=== PATIENT | male | born 1965 | race Caucasian/White ===

== ENCOUNTER 2018-03-08 21:16 | Emergency (ER) | payer SELFPAY | END 2018-03-08 23:00 | disposition left against medical advice (07) | LOC: ERS 21:16 | DX: Z53.21 Procedure and treatment not carried out due to patient leaving prior to being seen by health care provider (principal) ==

== ENCOUNTER 2019-02-13 19:09 | Inpatient (IN) | payer SELFPAY ==
[2019-02-13] MEDS ORDERED: Morphine 4 MG/ML VIAL ONE (19:42)
[2019-02-13 19:52] LABS: #Basophils 0.1 thou/uL (0.0-0.2); #Eosinphils 0.2 thou/uL (0.0-0.7); #Lymphocytes 2.7 thou/uL (1.20-3.40); #Monocytes 0.8 thou/uL (0.11-0.59); #Neutrophils 5.7 thou/uL (1.40-6.50); %Basophils 0.8 % (0.0-1.0); %Eosinophils 1.8 % (0.0-10.0); %Lymphocytes 28.3 % (21.0-51.0); %Monocytes 8.4 % (0.0-10.0); %Neutrophils 60.6 % (42.0-75.0); Hemoglobin 14.9 g/dL (14.0-18.0); Mean Corpuscular HGB CONC 32.9 g/dL (32.0-36.0); Mean Corpuscular Hemoglobin 28.6 pg (27.0-31.0); Mean Platelet Volume 7.5 fL (7.4-10.4); Platelet Count 342 thou/uL (130-400); RBC Distribution Width 11.6 % (11.5-14.5); Red Blood Cell (RBC) Count 5.23 mill/uL (4.70-6.10); White Blood Cell (WBC) Count 9.5 thou/uL (4.8-10.8)
[2019-02-13 20:10] LABS: ALT (SGPT) 8 U/L (8-55); AST (SGOT) 10 U/L (5-34); Albumin 3.9 g/dL (3.5-5.0); Alcohol Less than 10 mg/dL (Less than 10); Alkaline Phosphatase 74 U/L (40-150); Anion Gap 14 mmol/L (10-20); BUN (Urea Nitrogen) 12 mg/dL (8.4-25.7); Bilirubin, Total 0.6 mg/dL (0.2-1.2); Calc. Creatinine Clearance 0 mL/min (70-130); Calcium 10.2 mg/dL (7.8-10.44); Carbon Dioxide 31 mmol/L (22-29); Chloride 97 mmol/L (98-107); Estimated GFR-MDRD 85; Globulin 3.4 g/dL (2.4-3.5); Glucose 132 mg/dL (70-105); Potassium 3.3 mmol/L (3.5-5.1); Protein, Total 7.3 g/dL (6.0-8.3); Sodium 139 mmol/L (136-145)
--- NOTE | 2019-02-13 20:35 | CT ---
CT FACIAL BONE WITH CORONAL AND SAGITTAL REFORMATIONS: 02/13/19 HISTORY: Jaw pain, injury. FINDINGS: There is an incompletely displaced fracture involving the angle of the mandible on the left extending into the body with loosening of a molar tooth. No temporomandibular dislocation is seen. The remainder of the facial bones are intact. The visualized paranasal sinuses and mastoid air cells are well aerated. No air fluid levels are seen . There is mucosal disease in the inferior aspect of the left maxillary sinus. IMPRESSION: Left sided mandibular fracture. POS: [facility]
[2019-02-13] MEDS ORDERED: Zantac Syrup 75 MG/5 ML UDCUP PO SCH (21:30)
[2019-02-13] MEDS ORDERED: Clindamycin/D5W 300 MG in Premix Bag 1 BAG IVPB SCH (21:30)
[2019-02-13] MEDS ORDERED: Ondansetron PF 4 MG/2 ML Vial IVP PRN (22:15)
[2019-02-13] MEDS ORDERED: Dextrose 5% in Water 1,000 ML IV PRN (22:15)
[2019-02-13] MEDS ORDERED: Ondansetron ODT 4 MG TAB PO PRN (22:15)
[2019-02-13] MEDS ORDERED: Promethazine HCl 25 MG/ML VIAL IM PRN (22:15)
[2019-02-13] MEDS ORDERED: Acetaminophen 1,000 MG in Premix Bag 1 BAG IVPB PRN (22:15)
[2019-02-13] MEDS ORDERED: traMADol HCl 50 MG TAB PO PRN ×2 (22:15)
[2019-02-13] MEDS ORDERED: Dextrose 50% Abboject 50 ML SYRINGE SLOW IVP PRN (22:15)
[2019-02-13] MEDS ORDERED: Potassium Chloride 20 MEQ/100 ML PREMIX BAG IVPB SCH (22:15)
[2019-02-13] MEDS ORDERED: traMADol HCl 50 MG TAB ONE (22:25)
[2019-02-13] MEDS ORDERED: Ibuprofen 800 MG TAB PO SCH (22:30)
[2019-02-13] MEDS ORDERED: Potassium Chloride 20 MEQ in Premix Bag 1 BAG IVPB SCH (22:30)
[2019-02-13 23:03] VITALS: BMI 31.9
[2019-02-13] MEDS ORDERED: Ibuprofen 800 MG TAB ONE (23:11)
[2019-02-13] MEDS ORDERED: Potassium Chloride 20 MEQ/100 ML PREMIX BAG ONE (23:11)
[2019-02-13] MEDS: Sodium Chloride 0.9% 1,000 ML IV SCH (23:33)
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
[2019-02-14 04:21] LABS: Anion Gap 14 mmol/L (10-20); BUN (Urea Nitrogen) 10 mg/dL (8.4-25.7); Calc. Creatinine Clearance 155 mL/min (70-130); Calcium 9.4 mg/dL (7.8-10.44); Carbon Dioxide 27 mmol/L (22-29); Chloride 100 mmol/L (98-107); Estimated GFR-MDRD Greater than 90; Glucose 140 mg/dL (70-105); Potassium 3.5 mmol/L (3.5-5.1); Sodium 137 mmol/L (136-145)
[2019-02-14] MEDS: Clindamycin/D5W 300 MG/50 ML BAG IVPB SCH ×4 (04:26→22:46)
[2019-02-14] MEDS ORDERED: Ibuprofen 800 MG TAB ONE (05:58)
[2019-02-14] MEDS: Ibuprofen 800 MG TAB PO SCH ×3 (06:01→22:46)
[2019-02-14] MEDS: Sodium Chloride 0.9% 1,000 ML IV SCH ×3 (10:58→22:53)
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
[2019-02-14] MEDS ORDERED: Ondansetron PF 4 MG/2 ML Vial ONE (16:30)
[2019-02-14] MEDS ORDERED: Dexamethasone 20 MG/5 ML VIAL ONE (16:30)
[2019-02-14] MEDS ORDERED: Lidocaine 1% PF 5 ML VIAL ONE (16:30)
[2019-02-14] MEDS ORDERED: Glycopyrrolate 0.2 MG/ML 5 ML SYRINGE ONE (16:30)
[2019-02-14] MEDS ORDERED: Rocuronium Bromide 10 MG/ML (10ML VIAL) ONE (16:30)
[2019-02-14] MEDS ORDERED: Metoclopramide HCl 10 MG/2 ML VIAL ONE (16:30)
[2019-02-14] MEDS ORDERED: PROPOFOL 200 MG/20 ML VIAL ONE (16:30)
[2019-02-14] MEDS ORDERED: ePHEDrine 50 MG/ML VIAL ONE (16:30)
[2019-02-14] MEDS ORDERED: Lidocaine 1% w/Epinephrine 1:100K 20 ML VIAL ONE (16:49)
[2019-02-14] MEDS ORDERED: Hydrocortisone 1% Cream 30 GM TUBE ONE (16:49)
[2019-02-14] MEDS ORDERED: Chlorhexidine Gluconate 15 ML UDCUP SSP ONE (16:49)
[2019-02-14] MEDS ORDERED: Bacitracin Zinc Ointment 30 gm TUBE ONE (17:17)
[2019-02-14] MEDS ORDERED: Fentanyl 100 MCG/2 ML VIAL ONE ×2 (17:33→21:29)
[2019-02-14] MEDS ORDERED: HYDROmorphone 2 MG/ML VIAL ONE (17:33)
[2019-02-14] MEDS ORDERED: Oxymetazoline HCl 0.05% ( 15 ML ) ONE (17:39)
[2019-02-14] MEDS ORDERED: Sodium Chloride 0.9% 0 ML ONE (17:58)
[2019-02-14] MEDS ORDERED: Bupivacaine HCl 0.5%/Epinephrine 1:200,000/PF 30 ml Vial ONE (18:29)
[2019-02-14] MEDS ORDERED: Sodium Chloride 0.9% 10 ML ONE (18:56)
[2019-02-14] MEDS ORDERED: hydrALAZINE 20 MG/ML VIAL ONE (21:38)
[2019-02-14] MEDS: Bacitracin Zinc Ointment 30 gm TUBE TOP SCH (22:46)
[2019-02-14] MEDS: Chlorhexidine Gluconate 15 ML UDCUP SSP SCH (22:46)
[2019-02-15] MEDS: Clindamycin/D5W 300 MG/50 ML BAG IVPB SCH ×4 (02:02→21:26)
[2019-02-15] MEDS: Sodium Chloride 0.9% 1,000 ML IV SCH ×2 (02:02→13:23)
[2019-02-15] MEDS: Ibuprofen 800 MG TAB PO SCH ×3 (05:40→21:30)
[2019-02-15] MEDS ORDERED: Acetaminophen 500 MG TAB PO PRN (08:25)
[2019-02-15] MEDS: Chlorhexidine Gluconate 15 ML UDCUP SSP SCH ×2 (09:36→21:24)
[2019-02-15] MEDS: Bacitracin Zinc Ointment 30 gm TUBE TOP SCH ×2 (09:36→21:25)
[2019-02-15] MEDS ORDERED: Insulin Regular 300 UNITS/3 ML VIAL SC PRN (12:46)
--- NOTE | 2019-02-15 15:50 | CT ---
CT FACE WITHOUT CONTRAST: Date: 02/15/19 COMPARISON: 02/13/19. HISTORY: Left mandible fracture. FINDINGS: Multiple contiguous axial images were obtained in a CT of the face without contrast. Sagittal and cor onal reformats were performed. FINDINGS: There is a fracture of the angle of the left mandible. This is spanned with plate and screws. This is better aligned than on the prior preoperative facial CT. Surrounding air may be from recent surgery. The temporomandibular joints are symmetric. There are dental caries surrounding right-sided mandibul ar teeth and right-sided maxillary teeth. The globes and retrobulbar soft tissues are unremarkable. Visualized intracranial structures are unre markable. Paranasal sinuses and mastoid air cells are well aerated. IMPRESSION: Status post open reduction and internal fixation of left mandible fracture with better alignment of t he fracture. POS: [facility] [place]
[2019-02-15] MEDS ORDERED: traMADol HCl 50 MG TAB PO PRN (19:30)
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
[2019-02-16] MEDS: traMADol HCl 50 MG TAB PO SCH ×4 (00:36→18:48)
[2019-02-16] MEDS: Clindamycin/D5W 300 MG/50 ML BAG IVPB SCH ×4 (03:32→21:13)
[2019-02-16] MEDS: Ibuprofen 800 MG TAB PO SCH ×3 (06:36→21:13)
[2019-02-16] MEDS: Bacitracin Zinc Ointment 30 gm TUBE TOP SCH ×2 (08:53→21:13)
[2019-02-16] MEDS: Chlorhexidine Gluconate 15 ML UDCUP SSP SCH ×2 (08:53→21:13)
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
[2019-02-17] MEDS: traMADol HCl 50 MG TAB PO SCH ×5 (00:08→23:53)
[2019-02-17] MEDS: Clindamycin/D5W 300 MG/50 ML BAG IVPB SCH ×4 (02:52→21:11)
[2019-02-17 05:58] LABS: #Eosinphils 0.3 thou/uL (0.0-0.7); #Lymphocytes 3.6 thou/uL (1.20-3.40); #Monocytes 0.7 thou/uL (0.11-0.59); #Neutrophils 2.8 thou/uL (1.40-6.50); %Basophils 0.4 % (0.0-1.0); %Eosinophils 3.7 % (0.0-10.0); %Lymphocytes 48.8 % (21.0-51.0); %Neutrophils 37.1 % (42.0-75.0); Hemoglobin 12.9 g/dL (14.0-18.0); Mean Corpuscular HGB CONC 32.3 g/dL (32.0-36.0); Mean Corpuscular Hemoglobin 28.5 pg (27.0-31.0); Mean Corpuscular Volume 88.4 fL (78.0-98.0); Mean Platelet Volume 7.9 fL (7.4-10.4); Platelet Count 231 thou/uL (130-400); RBC Distribution Width 11.4 % (11.5-14.5); Red Blood Cell (RBC) Count 4.51 mill/uL (4.70-6.10); White Blood Cell (WBC) Count 7.4 thou/uL (4.8-10.8)
[2019-02-17 06:23] LABS: Anion Gap 11 mmol/L (10-20); BUN (Urea Nitrogen) 7 mg/dL (8.4-25.7); Calc. Creatinine Clearance 168 mL/min (70-130); Calcium 9.3 mg/dL (7.8-10.44); Carbon Dioxide 29 mmol/L (22-29); Chloride 104 mmol/L (98-107); Estimated GFR-MDRD Greater than 90; Glucose 97 mg/dL (70-105); Magnesium 1.6 mg/dL (1.6-2.6); Phosphorus 3.9 mg/dL (2.3-4.7); Sodium 140 mmol/L (136-145)
[2019-02-17] MEDS: Ibuprofen 800 MG TAB PO SCH ×3 (06:29→21:12)
[2019-02-17] MEDS: Chlorhexidine Gluconate 15 ML UDCUP SSP SCH ×2 (08:15→21:12)
[2019-02-17] MEDS: Bacitracin Zinc Ointment 30 gm TUBE TOP SCH ×2 (08:16→21:25)
[2019-02-18] MEDS: Clindamycin/D5W 300 MG/50 ML BAG IVPB SCH ×2 (03:59→09:28)
[2019-02-18] MEDS: Ibuprofen 800 MG TAB PO SCH (06:31)
[2019-02-18] MEDS: traMADol HCl 50 MG TAB PO SCH ×2 (06:32→12:18)
[2019-02-18] MEDS ORDERED: Polyethylene Glycol 3350 17 GM Packet PO SCH (09:00)
[2019-02-18] MEDS: Bacitracin Zinc Ointment 30 gm TUBE TOP SCH (09:29)
[2019-02-18] MEDS: Chlorhexidine Gluconate 15 ML UDCUP SSP SCH (09:29)
[2019-02-18 11:16] VITALS: TEMP 98.3
[2019-02-18 12:25] VITALS: BP 148/84
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
== END 2019-02-18 14:30 | disposition home or self-care (01) | DRG 132 ==
LOC: ERS 19:09 → ERHOLD 21:05 → SURG B 02-14 13:16
PROVIDERS: ADMIT Surgery; ATTEND Surgery
PROC: 0NSV04Z Reposition Left Mandible with Internal Fixation Device, Open Approach (ICD-10-PCS; principal; 2019-02-14)
DX: S02.602A Fracture of unspecified part of body of left mandible, initial encounter for closed fracture (principal); S02.5XXA Fracture of tooth (traumatic), initial encounter for closed fracture; I10 Essential (primary) hypertension; E11.9 Type 2 diabetes mellitus without complications; F17.210 Nicotine dependence, cigarettes, uncomplicated; E87.6 Hypokalemia; G40.909 Epilepsy, unspecified, not intractable, without status epilepticus; K08.3 Retained dental root; Z88.0 Allergy status to penicillin; Z88.8 Allergy status to other drugs, medicaments and biological substances; Z90.49 Acquired absence of other specified parts of digestive tract; Y08.89XA Assault by other specified means, initial encounter; Y93.89 Activity, other specified; Y92.9 Unspecified place or not applicable
CPT/HCPCS: 36415; 36416; 70486; 80048; 80053; 80307; 83735; 84100; 85025; 96365; 96372; 99406; C1713; J0131; J0360; J0670; J1100; J1170; J1815; J2001; J2270; J2405; J2704; J2765; J3010; J3480; J3490

== ENCOUNTER 2019-02-24 20:07 | Emergency (ER) | payer SELFPAY ==
[~2019-02-24 20:07] MED LIST: ISOVUE-370 76%-LOCM 1 ML ONE
[2019-02-24 20:38] LABS: #Basophils 0.1 thou/uL (0.0-0.2); #Eosinphils 0.3 thou/uL (0.0-0.7); #Lymphocytes 4.3 thou/uL (1.20-3.40); #Monocytes 0.8 thou/uL (0.11-0.59); #Neutrophils 5.7 thou/uL (1.40-6.50); %Basophils 0.9 % (0.0-1.0); %Eosinophils 2.8 % (0.0-10.0); %Lymphocytes 38.3 % (21.0-51.0); %Monocytes 7.4 % (0.0-10.0); %Neutrophils 50.6 % (42.0-75.0); Hemoglobin 14.4 g/dL (14.0-18.0); Mean Corpuscular HGB CONC 32.5 g/dL (32.0-36.0); Mean Corpuscular Hemoglobin 28.6 pg (27.0-31.0); Mean Corpuscular Volume 87.8 fL (78.0-98.0); Mean Platelet Volume 7.3 fL (7.4-10.4); Platelet Count 312 thou/uL (130-400); RBC Distribution Width 11.9 % (11.5-14.5); Red Blood Cell (RBC) Count 5.04 mill/uL (4.70-6.10); White Blood Cell (WBC) Count 11.3 thou/uL (4.8-10.8)
[2019-02-24 20:57] LABS: Anion Gap 12 mmol/L (10-20); BUN (Urea Nitrogen) 14 mg/dL (8.4-25.7); Calc. Creatinine Clearance 0 mL/min (70-130); Calcium 9.5 mg/dL (7.8-10.44); Carbon Dioxide 27 mmol/L (22-29); Chloride 103 mmol/L (98-107); Estimated GFR-MDRD Greater than 90; Glucose 121 mg/dL (70-105); Potassium 4.1 mmol/L (3.5-5.1); Sodium 138 mmol/L (136-145)
--- NOTE | 2019-02-24 21:24 | CT ---
CT facial bones with IV contrast 02/24/2019 COMPARISON: 02/15/2019 HISTORY: Pain and swelling, history of recent surgical correction of a mandibular fracture TECHNIQUE: Axial CT imaging at 2.5 mm intervals through the facial bones with IV contrast. Coronal an d sagittal reformatted imaging obtained. FINDINGS: Visualized frontal sinuses appear unremarkable. The ethmoid air cells, sphenoid sinuses, ma xillary sinuses, and imaged portions of the mastoid air cells appear grossly unremarkable. The nasal bones, the zygomatic arches, and the pterygoid plates are intact. There is an obliquely oriented nondisplaced fracture involving the mandible on the left status post s urgical fixation. There is no evidence for hardware failure or perihardware lucency. No evidence for dislocation of the temporomandibular joint on the left. The right mandibular condyle is anterior to the right mandibular fossa, a new finding. This could be on the basis of patient positioning or could signify right-sided temporomandibular joint subluxation. Clinical correlation is required. There are stable scattered degenerative changes of the cervical spine. The soft tissues in the left perimandibular region are mildly edematous with subcutaneous fat strandi ng, thickening of the platysma, and thickening of the adjacent skin. However, this soft tissue prominence/edema is improved when compared to 02/15/2019 exam. No evidence for abscess formation. IMPRESSION: Left mandibular fracture status post ORIF. Adjacent nonspecific soft tissue swelling, imp roved when compared to 02/15/2019. No evidence for abscess. Question subluxation of the right temporomandibular joint.
== END 2019-02-24 21:49 | disposition home or self-care (01) ==
LOC: ERS 20:07
DX: G89.18 Other acute postprocedural pain (principal); R68.84 Jaw pain; I10 Essential (primary) hypertension; E11.9 Type 2 diabetes mellitus without complications; F17.210 Nicotine dependence, cigarettes, uncomplicated
CPT/HCPCS: 36415; 70487; 80048; 85025; Q9966

== ENCOUNTER 2020-01-25 20:20 | Emergency (ER) | payer SELFPAY ==
[2020-01-25 20:56] LABS: #Basophils 0.1 thou/uL (0.0-0.2); #Eosinphils 0.2 thou/uL (0.0-0.7); #Lymphocytes 3.9 thou/uL (1.20-3.40); #Monocytes 0.9 thou/uL (0.11-0.59); #Neutrophils 4.2 thou/uL (1.40-6.50); %Eosinophils 2.4 % (0.0-10.0); %Lymphocytes 41.6 % (21.0-51.0); %Monocytes 9.6 % (0.0-10.0); %Neutrophils 45.4 % (42.0-75.0); Hemoglobin 13.6 g/dL (14.0-18.0); Mean Corpuscular HGB CONC 34.6 g/dL (32.0-36.0); Mean Corpuscular Hemoglobin 30.5 pg (27.0-31.0); Mean Corpuscular Volume 88.2 fL (78.0-98.0); Mean Platelet Volume 7.8 fL (7.4-10.4); Platelet Count 210 thou/uL (130-400); RBC Distribution Width 11.9 % (11.5-14.5); Red Blood Cell (RBC) Count 4.44 mill/uL (4.70-6.10); White Blood Cell (WBC) Count 9.3 thou/uL (4.8-10.8)
[2020-01-25 21:34] LABS: ALT (SGPT) 29 U/L (8-55); AST (SGOT) 17 U/L (5-34); Albumin 3.8 g/dL (3.5-5.0); Alkaline Phosphatase 62 U/L (40-110); Anion Gap 13 mmol/L (10-20); BUN (Urea Nitrogen) 16 mg/dL (8.4-25.7); Bilirubin, Total Less than 0.2 mg/dL (0.2-1.2); CK (CPK) 63 U/L (30-200); Calc. Creatinine Clearance 0 mL/min (70-130); Calcium 8.5 mg/dL (7.8-10.44); Carbon Dioxide 24 mmol/L (22-29); Chloride 107 mmol/L (98-107); Estimated GFR-MDRD Greater than 90; Globulin 2.5 g/dL (2.4-3.5); Glucose 94 mg/dL (70-105); Lipase 28 U/L (8-78); Potassium 4.2 mmol/L (3.5-5.1); Protein, Total 6.3 g/dL (6.0-8.3); Sodium 140 mmol/L (136-145)
== END 2020-01-25 22:35 | disposition home or self-care (01) ==
LOC: ERS 20:20
DX: R56.9 Unspecified convulsions (principal); F17.210 Nicotine dependence, cigarettes, uncomplicated; I10 Essential (primary) hypertension; E11.9 Type 2 diabetes mellitus without complications
CPT/HCPCS: 36415; 80053; 82550; 83690; 84484; 85025; 93005; 96360

== ENCOUNTER 2022-07-01 23:26 | Observation (INO) | payer SELFPAY ==
[2022-07-02] MEDS ORDERED: Bisacodyl 5 MG TAB PO PRN (04:14)
[2022-07-02] MEDS ORDERED: Acetaminophen 650 MG Suppository PR PRN (04:14)
[2022-07-02] MEDS ORDERED: Guaifenesin DM 100-10/5 ML UDCUP PO PRN (04:14)
[2022-07-02] MEDS ORDERED: Bisacodyl 10 MG SUPP PR PRN (04:14)
[2022-07-02] MEDS ORDERED: Senokot S 8.6-50 MG TAB PO PRN (04:14)
[2022-07-02] MEDS ORDERED: Ondansetron PF 4 MG/2 ML Vial IVP PRN (04:14)
[2022-07-02] MEDS ORDERED: Ondansetron ODT 4 MG TAB PO PRN (04:14)
[2022-07-02] MEDS ORDERED: Acetaminophen 325 MG TAB PO PRN (04:14)
[2022-07-02 05:26] LABS: #Eosinphils 0.5 thou/uL (0.0-0.7); #Lymphocytes 2.7 thou/uL (1.20-3.40); #Neutrophils 4.6 thou/uL (1.40-6.50); %Basophils 0.3 % (0.0-1.0); %Lymphocytes 30.5 % (21.0-51.0); %Monocytes 11.3 % (0.0-10.0); %Neutrophils 51.8 % (42.0-75.0); Hemoglobin 10.8 g/dL (14.0-18.0); Mean Corpuscular HGB CONC 32.3 g/dL (32.0-36.0); Mean Corpuscular Hemoglobin 29.2 pg (27.0-31.0); Mean Corpuscular Volume 90.4 fl (78.0-98.0); Mean Platelet Volume 7.2 fL (7.4-10.4); Platelet Count 317 10x3/uL (130-400); RBC Distribution Width 11.9 % (11.5-14.5); Red Blood Cell (RBC) Count 3.68 mill/uL (4.70-6.10); White Blood Cell (WBC) Count 8.9 10x3/uL (4.8-10.8)
[2022-07-02 05:45] VITALS: BMI 32.8
[2022-07-02 05:50] LABS: ALT (SGPT) 35 U/L (8-55); AST (SGOT) 17 U/L (5-34); Alkaline Phosphatase 69 U/L (40-110); Anion Gap 11 mmol/L (10-20); BUN (Urea Nitrogen) 9 mg/dL (8.4-25.7); Bilirubin, Total 0.5 mg/dL (0.2-1.2); Calc. Creatinine Clearance 158 mL/min (70-130); Calcium 8.3 mg/dL (7.8-10.44); Carbon Dioxide 25 mmol/L (22-29); Chloride 105 mmol/L (98-107); Estimated GFR 107; Globulin 2.7 g/dL (2.4-3.5); Glucose 104 mg/dL (70-105); Potassium 4.3 mmol/L (3.5-5.1); Protein, Total 5.7 g/dL (6.0-8.3); Sodium 137 mmol/L (136-145)
[2022-07-02 06:05] LABS: Troponin I 0.586 ng/mL (< 0.028)
[2022-07-02] MEDS: Famotidine 20 MG TAB PO SCH ×2 (08:33→20:43)
[2022-07-02] MEDS: Famotidine/PF 20 mg/2ml Vial SLOW IVP SCH ×2 (08:34→20:48)
[2022-07-02] MEDS ORDERED: Furosemide 40 MG/4 ML VIAL SLOW IVP SCH (08:45)
[2022-07-02] MEDS ORDERED: Nicotine 21 MG PATCH TD SCH (09:00)
[2022-07-02] MEDS: Aspirin Chewable 81 MG TAB PO SCH (09:57)
[2022-07-02] MEDS: Metoprolol Tartrate 25 MG TAB PO SCH ×2 (09:57→20:43)
[2022-07-02] MEDS: Amlodipine 5 MG TAB PO SCH (09:57)
[2022-07-02 10:57] LABS: Amphetamine Detected (NotDetected); Barbiturates Screen Not Detected (NotDetected); Benzodiazepine Screen Not Detected (NotDetected); Cocaine Metabolite Screen Not Detected (NotDetected); Methadone Not Detected (NotDetected); Methamphetamine Detected (NotDetected); Opiate Screen Detected (NotDetected); Oxycodone Screen Not Detected (NotDetected); Phencyclidine (PCP) Not Detected (NotDetected); THC/Cannabinoid Screen Not Detected (NotDetected); Tricyclic Screen Not Detected (NotDetected)
[2022-07-02 11:43] LABS: Critical Call Chem Troponin I >0.58; Troponin I 0.552 ng/mL (< 0.028)
[2022-07-02] MEDS ORDERED: Atorvastatin Calcium 40 MG TAB PO SCH (21:00)
[2022-07-03 05:08] LABS: #Eosinphils 0.7 thou/uL (0.0-0.7); #Lymphocytes 2.7 thou/uL (1.20-3.40); #Neutrophils 6.9 thou/uL (1.40-6.50); %Basophils 0.2 % (0.0-1.0); %Eosinophils 6.5 % (0.0-10.0); %Lymphocytes 23.6 % (21.0-51.0); %Monocytes 9.1 % (0.0-10.0); %Neutrophils 60.6 % (42.0-75.0); Mean Corpuscular HGB CONC 32.8 g/dL (32.0-36.0); Mean Corpuscular Hemoglobin 29.6 pg (27.0-31.0); Mean Corpuscular Volume 90.2 fl (78.0-98.0); Mean Platelet Volume 7.5 fL (7.4-10.4); Platelet Count 399 10x3/uL (130-400); RBC Distribution Width 12.1 % (11.5-14.5); Red Blood Cell (RBC) Count 4.07 mill/uL (4.70-6.10); White Blood Cell (WBC) Count 11.4 10x3/uL (4.8-10.8)
[2022-07-03 05:31] LABS: Anion Gap 12 mmol/L (10-20); BUN (Urea Nitrogen) 10 mg/dL (8.4-25.7); Calc. Creatinine Clearance 152 mL/min (70-130); Calcium 8.9 mg/dL (7.8-10.44); Carbon Dioxide 27 mmol/L (22-29); Chloride 103 mmol/L (98-107); Estimated GFR 106; Glucose 112 mg/dL (70-105); Potassium 4.1 mmol/L (3.5-5.1); Sodium 138 mmol/L (136-145)
[2022-07-03] MEDS: Metoprolol Tartrate 25 MG TAB PO SCH (09:14)
[2022-07-03] MEDS: Aspirin Chewable 81 MG TAB PO SCH (09:14)
[2022-07-03] MEDS: Amlodipine 5 MG TAB PO SCH (09:15)
[2022-07-03] MEDS: Famotidine 20 MG TAB PO SCH (09:15)
[2022-07-03] MEDS: Famotidine/PF 20 mg/2ml Vial SLOW IVP SCH (09:16)
[2022-07-03 11:58] VITALS: BP 126/71; TEMP 98.1
[2022-07-05] MEDS ORDERED: FLU VACC QS2022-23(6MOS UP)/PF 60 MCG/0.5 ML SYRINGE IM ONE (09:00)
== END 2022-07-03 13:45 | disposition home or self-care (01) ==
LOC: 2SW 07-02 01:35
PROVIDERS: ADMIT Family Medicine; ATTEND Family Medicine
DX: R07.2 Precordial pain (principal); I25.10 Atherosclerotic heart disease of native coronary artery without angina pectoris; F15.10 Other stimulant abuse, uncomplicated; F17.210 Nicotine dependence, cigarettes, uncomplicated; R77.8 Other specified abnormalities of plasma proteins; E78.5 Hyperlipidemia, unspecified; G40.409 Other generalized epilepsy and epileptic syndromes, not intractable, without status epilepticus; I10 Essential (primary) hypertension; Z86.73 Personal history of transient ischemic attack (TIA), and cerebral infarction without residual deficits; Z91.14 Patient's other noncompliance with medication regimen; Z88.0 Allergy status to penicillin; Z88.5 Allergy status to narcotic agent; Z95.1 Presence of aortocoronary bypass graft
CPT/HCPCS: 36415; 80048; 80053; 80306; 84484; 85025; 96374; G0378; J1940

== ENCOUNTER 2023-09-11 17:54 | Emergency (ER) | payer SELFPAY | END 2023-09-11 18:13 | disposition left against medical advice (07) | LOC: ERS 17:54 | DX: Z53.1 Procedure and treatment not carried out because of patient's decision for reasons of belief and group pressure (principal) ==

== ENCOUNTER 2024-01-18 22:12 | Inpatient (IN) | payer SELFPAY ==
[2024-01-18 23:08] LABS: #Basophils Less than 0.03 10x3/uL (0.0-0.2); %Basophils 0.1 % (0.0-1.0); %Eosinophils 2.1 % (0.0-10.0); %Lymphocytes 15.3 % (21.0-51.0); %Monocytes 5.3 % (0.0-10.0); %Neutrophils 76.8 % (42.0-75.0); Hemoglobin 13.8 g/dL (14.0-18.0); Mean Corpuscular HGB CONC 33.7 g/dL (32.0-36.0); Mean Corpuscular Hemoglobin 30.3 pg (27.0-31.0); Mean Corpuscular Volume 89.9 fL (78.0-98.0); Mean Platelet Volume 9.7 fL (7.4-10.4); Platelet Count 221 10x3/uL (130-400); RBC Distribution Width 12.9 % (11.5-14.5); Red Blood Cell (RBC) Count 4.56 mill/uL (4.70-6.10)
[2024-01-18 23:23] LABS: ALT (SGPT) 27 U/L (8-55); AST (SGOT) 44 U/L (5-34); Albumin 3.3 g/dL (3.5-5.0); Alkaline Phosphatase 68 U/L (40-110); Anion Gap 12 mmol/L (10-20); BUN (Urea Nitrogen) 18 mg/dL (8.4-25.7); Bilirubin, Total 0.2 mg/dL (0.2-1.2); Calc. Creatinine Clearance 0 mL/min (70-130); Calcium 8.5 mg/dL (7.8-10.44); Carbon Dioxide 23 mmol/L (22-29); Chloride 108 mmol/L (98-107); Estimated GFR 86; Globulin 2.8 g/dL (2.4-3.5); Glucose 163 mg/dL (70-105); Potassium 3.7 mmol/L (3.5-5.1); Protein, Total 6.1 g/dL (6.0-8.3); Sodium 139 mmol/L (136-145)
[2024-01-18 23:28] LABS: Critical Call Chem Troponin I ERS.ZC@2328; Troponin I 0.438 ng/mL (< 0.028)
[2024-01-18 23:53] LABS: Actual Bicarbonate (HCO3v) 24.4 mEq/L (22-28); Base Excess -2.9 mEq/L (-2.0 to +3.0); Calcium, Ionized (venous) 1.04 mmol/L (1.16-1.32); Chloride (VBG) 105 mmol/L (98-106); Hematocrit-VBG 41 % (42.0-52.0); Potassium (VBG) 3.69 mmol/L (3.70-5.30); Sodium 138 mmol/L (133-146); pH (venous) 7.286 (7.32-7.43)
[2024-01-19] MEDS ORDERED: Acetaminophen 650 MG Suppository PR PRN (01:55)
[2024-01-19] MEDS ORDERED: Ondansetron PF 4 MG/2 ML Vial IVP PRN (01:55)
[2024-01-19] MEDS ORDERED: Nitroglycerin 0.4 MG TAB (25 Tab Bottle) SL PRN (01:55)
[2024-01-19] MEDS ORDERED: Acetaminophen 325 MG TAB PO PRN (01:55)
[2024-01-19] MEDS ORDERED: Ondansetron ODT 4 MG TAB PO PRN (01:55)
[2024-01-19] MEDS ORDERED: Nitroglycerin 0.4 MG TAB 1 EACH ONE (01:57)
[2024-01-19] MEDS ORDERED: Heparin 25,000 units/D5W 500 ML IVPB SCH (02:30)
[2024-01-19] MEDS ORDERED: Heparin 10,000 UNITS/ 10 ML VIAL SLOW IVP SCH (02:30)
[2024-01-19 03:11] LABS: Hematocrit 40.9 % (42.0-52.0); Hemoglobin 13.8 g/dL (14.0-18.0); Platelet Count 229 10x3/uL (130-400)
[2024-01-19 03:27] LABS: Magnesium 1.8 mg/dL (1.6-2.6)
[2024-01-19 04:00] LABS: Critical Call Chem Troponin I NUR.DW5@0400; Troponin I 5.968 ng/mL (< 0.028)
[2024-01-19] MEDS ORDERED: Aspirin Chewable 81 MG TAB ONE (09:41)
[2024-01-19] MEDS ORDERED: Amlodipine 5 MG TAB ONE (09:45)
[2024-01-19] MEDS: Aspirin Chewable 81 MG TAB PO SCH (09:50)
[2024-01-19] MEDS: Amlodipine 5 MG TAB PO SCH (09:50)
[2024-01-19] MEDS ORDERED: Clopidogrel Bisulfate 300 MG TAB PO SCH (15:45)
[2024-01-19] MEDS ORDERED: Enoxaparin 80 MG (0.8 mL) SYRINGE SC SCH (15:45)
[2024-01-19] MEDS: Enoxaparin 100 MG (1 mL) SYRINGE SC SCH (18:52)
[2024-01-19] MEDS: Atorvastatin Calcium 40 MG TAB PO SCH (20:04)
[2024-01-19] MEDS: Clopidogrel Bisulfate 75 MG TAB PO SCH (20:04)
[2024-01-19 20:11] LABS: Amphetamine Detected (NotDetected); Barbiturates Screen Not Detected (NotDetected); Benzodiazepine Screen Detected (NotDetected); Cocaine Metabolite Screen Not Detected (NotDetected); Methadone Not Detected (NotDetected); Methamphetamine Detected (NotDetected); Opiate Screen Detected (NotDetected); Oxycodone Screen Not Detected (NotDetected); Phencyclidine (PCP) Not Detected (NotDetected); THC/Cannabinoid Screen Not Detected (NotDetected); Tricyclic Screen Not Detected (NotDetected)
[2024-01-20 05:10] LABS: Cardiac Risk 4.1 (Less than 4.5)
[2024-01-20] MEDS: Enoxaparin 100 MG (1 mL) SYRINGE SC SCH (09:07)
[2024-01-20 13:55] VITALS: BMI 31.1
[2024-01-21 02:23] LABS: Hematocrit 41.2 % (42.0-52.0); Platelet Count 208 10x3/uL (130-400)
[2024-01-21 18:42] VITALS: BP 104/59; TEMP 97.1
== END 2024-01-21 22:25 | disposition home or self-care (01) | DRG 282 ==
LOC: ERS 22:12 → ERHOLD 01-19 02:04 → 2NO 01-19 13:12
PROVIDERS: ADMIT Student in an Organized Health Care Education/Training Program; ATTEND Internal Medicine
DX: I21.4 Non-ST elevation (NSTEMI) myocardial infarction (principal); I10 Essential (primary) hypertension; I25.10 Atherosclerotic heart disease of native coronary artery without angina pectoris; Z95.1 Presence of aortocoronary bypass graft; F15.10 Other stimulant abuse, uncomplicated; Z88.5 Allergy status to narcotic agent; Z88.0 Allergy status to penicillin; Z79.82 Long term (current) use of aspirin; Z79.899 Other long term (current) drug therapy; Z90.49 Acquired absence of other specified parts of digestive tract
CPT/HCPCS: 36415; 80061; 80306; 82805; 83036; 83735; 83880; 84443; 84484; 85014; 85018; 85049; 85730; 93005; 97139; J1644; J1650

== ENCOUNTER 2024-02-16 16:07 | Inpatient (IN) | payer OTHER ==
[2024-02-16 17:36] LABS: #Basophils 0.03 10x3/uL (0.0-0.2); %Basophils 0.3 % (0.0-1.0); %Eosinophils 2.5 % (0.0-10.0); %Lymphocytes 17.6 % (21.0-51.0); %Monocytes 6.2 % (0.0-10.0); Hematocrit 41.4 % (42.0-52.0); Hemoglobin 14.1 g/dL (14.0-18.0); Mean Corpuscular HGB CONC 34.1 g/dL (32.0-36.0); Mean Corpuscular Hemoglobin 29.9 pg (27.0-31.0); Mean Corpuscular Volume 87.7 fL (78.0-98.0); Mean Platelet Volume 9.9 fL (7.4-10.4); Platelet Count 223 10x3/uL (130-400); RBC Distribution Width 13.2 % (11.5-14.5); Red Blood Cell (RBC) Count 4.72 mill/uL (4.70-6.10)
[2024-02-16 18:29] LABS: ALT (SGPT) 22 U/L (8-55); AST (SGOT) 23 U/L (5-34); Albumin 3.5 g/dL (3.5-5.0); Alkaline Phosphatase 72 U/L (40-110); Anion Gap 13 mmol/L (10-20); BUN (Urea Nitrogen) 13 mg/dL (8.4-25.7); Bilirubin, Total 0.3 mg/dL (0.2-1.2); Calc. Creatinine Clearance 0 mL/min (70-130); Calcium 8.6 mg/dL (7.8-10.44); Carbon Dioxide 23 mmol/L (22-29); Estimated GFR 83; Globulin 2.9 g/dL (2.4-3.5); Glucose 185 mg/dL (70-105); Protein, Total 6.4 g/dL (6.0-8.3)
[2024-02-16 18:40] LABS: Chloride 108 mmol/L (98-107); Potassium 3.4 mmol/L (3.5-5.1); Sodium 141 mmol/L (136-145)
[2024-02-16 18:42] LABS: Troponin I 0.445 ng/mL (< 0.028)
[2024-02-16 19:29] LABS: Acetaminophen Less than 10 mcg/mL (10.0-30.0); Alcohol Less than 10.0 mg/dL (Less than 10); Salicylate Less than 8.0 mg/dL (15.0-30.0)
[2024-02-16] MEDS ORDERED: Aspirin Chewable 81 MG TAB ONE (19:57)
[2024-02-16] MEDS ORDERED: cefTRIAXone (ROCEPHIN) 2 GM VIAL ONE (19:57)
[2024-02-16] MEDS ORDERED: Potassium Chloride 20 MEQ TAB ONE (19:57)
[2024-02-16] MEDS ORDERED: Sodium Chloride 0.9% 100 ML ONE (20:00)
[2024-02-16] MEDS ORDERED: Acetaminophen 650 MG Suppository PR PRN (20:22)
[2024-02-16] MEDS ORDERED: Ondansetron ODT 4 MG TAB PO PRN (20:22)
[2024-02-16] MEDS ORDERED: Nitroglycerin 0.4 MG TAB (25 Tab Bottle) SL PRN (20:22)
[2024-02-16] MEDS ORDERED: Ondansetron PF 4 MG/2 ML Vial IVP PRN (20:22)
[2024-02-16 20:54] LABS: Troponin I 3.614 ng/mL (< 0.028)
[2024-02-16] MEDS ORDERED: Electrolyte Replacement Protocol 1 EACH FS SCH (21:15)
[2024-02-16] MEDS ORDERED: Glucagon 1 MG/ML KIT IM PRN (21:18)
[2024-02-16] MEDS ORDERED: Dextrose 50% Abboject 50 ML SYRINGE SLOW IVP PRN (21:18)
[2024-02-16] MEDS ORDERED: Insulin Lispro 100 UNIT/ML 10 ML VIAL SC PRN ×2 (21:18)
[2024-02-16] MEDS ORDERED: Dextrose 5% in Water 1,000 ML IV PRN (21:18)
[2024-02-16 21:31] VITALS: BMI 31.1
[2024-02-16] MEDS ORDERED: Ipratropium/Albuterol 3 ML NEB NEB PRN (21:50)
[2024-02-16] MEDS: Ipratropium/Albuterol 3 ML NEB NEB SCH (22:11)
[2024-02-16] MEDS ORDERED: Potassium Chloride 20 MEQ TAB PO SCH (22:15)
[2024-02-16 22:21] LABS: Lactic Acid 1.3 mmol/L (0.5-2.2)
[2024-02-16] MEDS: Enoxaparin 100 MG (1 mL) SYRINGE SC SCH (22:29)
[2024-02-16] MEDS: Magnesium 2 GM/50 ML(in water) 2 GM in Premix 1 BAG IVPB SCH (22:29)
[2024-02-17 00:24] LABS: Troponin I 7.434 ng/mL (< 0.028)
[2024-02-17 03:51] LABS: #Basophils Less than 0.03 10x3/uL (0.0-0.2); %Basophils 0.2 % (0.0-1.0); %Lymphocytes 26.7 % (21.0-51.0); %Monocytes 9.3 % (0.0-10.0); %Neutrophils 59.5 % (42.0-75.0); Hematocrit 39.7 % (42.0-52.0); Hemoglobin 13.3 g/dL (14.0-18.0); Mean Corpuscular HGB CONC 33.5 g/dL (32.0-36.0); Mean Corpuscular Hemoglobin 29.7 pg (27.0-31.0); Mean Corpuscular Volume 88.6 fL (78.0-98.0); Mean Platelet Volume 10.3 fL (7.4-10.4); Platelet Count 222 10x3/uL (130-400); RBC Distribution Width 13.1 % (11.5-14.5); Red Blood Cell (RBC) Count 4.48 mill/uL (4.70-6.10)
[2024-02-17 04:15] LABS: Anion Gap 12 mmol/L (10-20); BUN (Urea Nitrogen) 13 mg/dL (8.4-25.7); Calc. Creatinine Clearance 130 mL/min (70-130); Calcium 8.4 mg/dL (7.8-10.44); Carbon Dioxide 25 mmol/L (22-29); Chloride 110 mmol/L (98-107); Estimated GFR 103; Glucose 110 mg/dL (70-105); Magnesium 2.2 mg/dL (1.6-2.6); Potassium 3.9 mmol/L (3.5-5.1); Sodium 143 mmol/L (136-145)
[2024-02-17 04:21] LABS: Troponin I 9.506 ng/mL (< 0.028)
[2024-02-17] MEDS: Enoxaparin 100 MG (1 mL) SYRINGE SC SCH (09:42)
[2024-02-17] MEDS: Aspirin Chewable 81 MG TAB PO SCH (09:43)
[2024-02-17 14:57] LABS: Amphetamine Detected (NotDetected); Barbiturates Screen Not Detected (NotDetected); Benzodiazepine Screen Not Detected (NotDetected); Cocaine Metabolite Screen Not Detected (NotDetected); Methadone Not Detected (NotDetected); Methamphetamine Detected (NotDetected); Opiate Screen Not Detected (NotDetected); Oxycodone Screen Not Detected (NotDetected); Phencyclidine (PCP) Not Detected (NotDetected); THC/Cannabinoid Screen Not Detected (NotDetected); Tricyclic Screen Not Detected (NotDetected)
[2024-02-17] MEDS ORDERED: Azithromycin 500 MG in Sodium Chloride 0.9% 250 ML 250 ML IVPB SCH (18:00)
[2024-02-17] MEDS: cefTRIAXone\\ROCEPHIN 1 GM in Sodium Chloride 0.9% 100 ML IVPB SCH (19:29)
[2024-02-17] MEDS: Atorvastatin Calcium 40 MG TAB PO SCH (20:25)
[2024-02-17] MEDS: metroNIDAZOLE 500 MG TAB PO SCH (20:25)
[2024-02-18 04:30] LABS: Anion Gap 12 mmol/L (10-20); BUN (Urea Nitrogen) 12 mg/dL (8.4-25.7); Calc. Creatinine Clearance 116 mL/min (70-130); Calcium 8.6 mg/dL (7.8-10.44); Carbon Dioxide 22 mmol/L (22-29); Chloride 105 mmol/L (98-107); Estimated GFR 96; Glucose 102 mg/dL (70-105); Potassium 3.5 mmol/L (3.5-5.1); Sodium 135 mmol/L (136-145)
[2024-02-18 04:47] LABS: #Basophils 0.03 10x3/uL (0.0-0.2); %Basophils 0.2 % (0.0-1.0); %Eosinophils 2.1 % (0.0-10.0); %Lymphocytes 29.7 % (21.0-51.0); %Monocytes 10.2 % (0.0-10.0); %Neutrophils 57.5 % (42.0-75.0); Hematocrit 39.9 % (42.0-52.0); Hemoglobin 13.6 g/dL (14.0-18.0); Mean Corpuscular HGB CONC 34.1 g/dL (32.0-36.0); Mean Corpuscular Hemoglobin 29.9 pg (27.0-31.0); Mean Corpuscular Volume 87.7 fL (78.0-98.0); Mean Platelet Volume 10.8 fL (7.4-10.4); Platelet Count 215 10x3/uL (130-400); RBC Distribution Width 12.6 % (11.5-14.5); Red Blood Cell (RBC) Count 4.55 mill/uL (4.70-6.10)
[2024-02-18] MEDS: Acetaminophen 325 MG TAB PO PRN (08:23)
[2024-02-18] MEDS: Potassium Chloride 20 MEQ TAB PO SCH (08:23)
[2024-02-18] MEDS: Isosorbide Mononitrate 30 MG ER.TAB PO SCH (08:24)
[2024-02-18 12:07] VITALS: BP 90/55; TEMP 97.7
== END 2024-02-18 17:33 | disposition home or self-care (01) | DRG 917 ==
LOC: ERS 16:07 → 2SW 20:04 → OBSVTOIN 02-17 19:22
PROVIDERS: ADMIT Student in an Organized Health Care Education/Training Program; ATTEND Internal Medicine
PROC: 4A0D7BZ Measurement of Urinary Pressure, Via Natural or Artificial Opening (ICD-10-PCS; principal; 2024-02-17)
DX: T43.654A Poisoning by methamphetamines, undetermined, initial encounter (principal); G92.8 Other toxic encephalopathy; I21.4 Non-ST elevation (NSTEMI) myocardial infarction; J18.9 Pneumonia, unspecified organism; J69.0 Pneumonitis due to inhalation of food and vomit; E87.1 Hypo-osmolality and hyponatremia; F15.20 Other stimulant dependence, uncomplicated; I25.10 Atherosclerotic heart disease of native coronary artery without angina pectoris; I11.0 Hypertensive heart disease with heart failure; E11.9 Type 2 diabetes mellitus without complications; F17.210 Nicotine dependence, cigarettes, uncomplicated; E87.6 Hypokalemia; E83.42 Hypomagnesemia; F32.A Depression, unspecified; F41.9 Anxiety disorder, unspecified; E78.5 Hyperlipidemia, unspecified; Z88.5 Allergy status to narcotic agent; Z88.0 Allergy status to penicillin; Z79.899 Other long term (current) drug therapy; Z95.0 Presence of cardiac pacemaker; Z79.82 Long term (current) use of aspirin; Z79.02 Long term (current) use of antithrombotics/antiplatelets; Z90.49 Acquired absence of other specified parts of digestive tract; R33.9 Retention of urine, unspecified; Z71.51 Drug abuse counseling and surveillance of drug abuser; Z91.148 Patient's other noncompliance with medication regimen for other reason
CPT/HCPCS: 36415; 36416; 51798; 70450; 71045; 80048; 80053; 80306; 80307; 83605; 83735; 83880; 84484; 85025; 87040; 93005; 93010; 94640; 94760; 96372; 96374; 96375; G0378; J0696; J1650; J3475; J3490; J7620

== ENCOUNTER 2024-06-30 15:31 | Inpatient (IN) | payer OTHER ==
[2024-06-30 16:15] LABS: #Basophils Less than 0.03 10x3/uL (0.0-0.2); %Basophils 0.2 % (0.0-1.0); %Eosinophils 2.2 % (0.0-10.0); %Neutrophils 70.3 % (42.0-75.0); Hemoglobin 14.3 g/dL (14.0-18.0); Mean Corpuscular HGB CONC 33.3 g/dL (32.0-36.0); Mean Corpuscular Hemoglobin 29.1 pg (27.0-31.0); Mean Corpuscular Volume 87.4 fL (78.0-98.0); Mean Platelet Volume 9.4 fL (7.4-10.4); Platelet Count 215 10x3/uL (130-400); RBC Distribution Width 13.3 % (11.5-14.5); Red Blood Cell (RBC) Count 4.92 mill/uL (4.70-6.10)
[2024-06-30 16:30] LABS: ALT (SGPT) 20 U/L (8-55); AST (SGOT) 19 U/L (5-34); Albumin 3.4 g/dL (3.5-5.0); Alkaline Phosphatase 64 U/L (40-110); Anion Gap 14 mmol/L (10-20); BUN (Urea Nitrogen) 9 mg/dL (8.4-25.7); Bilirubin, Total 0.4 mg/dL (0.2-1.2); Calc. Creatinine Clearance 0 mL/min (70-130); Calcium 8.4 mg/dL (7.8-10.44); Carbon Dioxide 19 mmol/L (22-29); Chloride 108 mmol/L (98-107); Estimated GFR 101; Globulin 2.6 g/dL (2.4-3.5); Glucose 162 mg/dL (70-105); Sodium 137 mmol/L (136-145)
[2024-06-30 16:41] LABS: Critical Call Chem Troponin I NUR.LL7t; Troponin I 0.259 ng/mL (< 0.028)
[2024-06-30] MEDS ORDERED: Enoxaparin 100 MG (1 mL) SYRINGE ONE (16:53)
[2024-06-30] MEDS ORDERED: Acetaminophen 325 MG TAB PO PRN (17:56)
[2024-06-30] MEDS ORDERED: Nitroglycerin 0.4 MG TAB (25 Tab Bottle) SL PRN (17:56)
[2024-06-30] MEDS ORDERED: Dextrose 50% Abboject 50 ML SYRINGE SLOW IVP PRN (17:56)
[2024-06-30] MEDS ORDERED: Insulin Regular, Human 100 UNIT/ML 10 ML VIAL SC PRN (17:56)
[2024-06-30] MEDS ORDERED: Dextrose 5% in Water 1,000 ML IV PRN (17:56)
[2024-06-30] MEDS ORDERED: Glucagon 1 MG/ML KIT IM PRN (17:56)
[2024-06-30 18:55] LABS: Critical Call Chem Troponin I NUR.IS BUSY
[2024-06-30 19:45] LABS: Troponin I 0.611 ng/mL (< 0.028)
[2024-06-30 19:53] VITALS: BMI 28.5
[2024-06-30] MEDS: Atorvastatin Calcium 40 MG TAB PO SCH (20:53)
[2024-06-30] MEDS: Metoprolol Tartrate 25 MG TAB PO SCH (20:53)
[2024-06-30] MEDS: Famotidine/PF 20 mg/2ml Vial SLOW IVP SCH (20:54)
[2024-06-30 23:24] LABS: Troponin I 2.061 ng/mL (< 0.028)
[2024-07-01 05:17] LABS: Anion Gap 10 mmol/L (10-20); BUN (Urea Nitrogen) 9 mg/dL (8.4-25.7); Calc. Creatinine Clearance 102 mL/min (70-130); Calcium 8.2 mg/dL (7.8-10.44); Carbon Dioxide 24 mmol/L (22-29); Chloride 107 mmol/L (98-107); Estimated GFR 92; Glucose 113 mg/dL (70-105); Magnesium 1.8 mg/dL (1.6-2.6); Potassium 3.7 mmol/L (3.5-5.1); Sodium 137 mmol/L (136-145)
[2024-07-01 05:28] LABS: Troponin I 2.196 ng/mL (< 0.028)
[2024-07-01] MEDS ORDERED: Furosemide 20 MG TAB PO SCH (09:00)
[2024-07-01] MEDS: Enoxaparin 80 MG (0.8 mL) SYRINGE SC SCH (10:06)
[2024-07-01] MEDS: Aspirin Chewable 81 MG TAB PO SCH (10:06)
[2024-07-01] MEDS: Metoprolol Tartrate 25 MG TAB PO SCH (21:17)
[2024-07-02 05:00] LABS: #Basophils 0.03 10x3/uL (0.0-0.2); %Basophils 0.4 % (0.0-1.0); %Eosinophils 4.1 % (0.0-10.0); %Lymphocytes 42.8 % (21.0-51.0); %Monocytes 9.2 % (0.0-10.0); %Neutrophils 43.4 % (42.0-75.0); Hematocrit 39.7 % (42.0-52.0); Hemoglobin 13.4 g/dL (14.0-18.0); Mean Corpuscular HGB CONC 33.8 g/dL (32.0-36.0); Mean Corpuscular Hemoglobin 29.4 pg (27.0-31.0); Mean Corpuscular Volume 87.1 fL (78.0-98.0); Mean Platelet Volume 10.4 fL (7.4-10.4); Platelet Count 194 10x3/uL (130-400); RBC Distribution Width 13.2 % (11.5-14.5); Red Blood Cell (RBC) Count 4.56 mill/uL (4.70-6.10)
[2024-07-02 05:02] LABS: Anion Gap 11 mmol/L (10-20); BUN (Urea Nitrogen) 14 mg/dL (8.4-25.7); Calc. Creatinine Clearance 91 mL/min (70-130); Calcium 8.4 mg/dL (7.8-10.44); Carbon Dioxide 25 mmol/L (22-29); Chloride 106 mmol/L (98-107); Estimated GFR 80; Glucose 113 mg/dL (70-105); Magnesium 1.8 mg/dL (1.6-2.6); Sodium 138 mmol/L (136-145)
[2024-07-02 07:14] LABS: Amphetamine Detected (NotDetected); Barbiturates Screen Not Detected (NotDetected); Benzodiazepine Screen Not Detected (NotDetected); Cocaine Metabolite Screen Not Detected (NotDetected); Methadone Not Detected (NotDetected); Methamphetamine Detected (NotDetected); Opiate Screen Not Detected (NotDetected); Oxycodone Screen Not Detected (NotDetected); Phencyclidine (PCP) Not Detected (NotDetected); THC/Cannabinoid Screen Not Detected (NotDetected); Tricyclic Screen Not Detected (NotDetected)
[2024-07-02 11:08] VITALS: BMI 28.5
[2024-07-02] MEDS: Clopidogrel Bisulfate 300 MG TAB PO SCH (13:19)
[2024-07-02] MEDS: Ipratropium/Albuterol 3 ML NEB NEB SCH (23:44)
[2024-07-03 04:01] LABS: #Basophils 0.03 10x3/uL (0.0-0.2); %Basophils 0.3 % (0.0-1.0); %Eosinophils 3.6 % (0.0-10.0); %Lymphocytes 29.3 % (21.0-51.0); %Monocytes 9.4 % (0.0-10.0); Hematocrit 41.2 % (42.0-52.0); Hemoglobin 13.7 g/dL (14.0-18.0); Mean Corpuscular HGB CONC 33.3 g/dL (32.0-36.0); Mean Corpuscular Hemoglobin 28.8 pg (27.0-31.0); Mean Corpuscular Volume 86.7 fL (78.0-98.0); Mean Platelet Volume 10.2 fL (7.4-10.4); Platelet Count 190 10x3/uL (130-400); RBC Distribution Width 13.2 % (11.5-14.5); Red Blood Cell (RBC) Count 4.75 mill/uL (4.70-6.10)
[2024-07-03 04:15] LABS: Anion Gap 13 mmol/L (10-20); BUN (Urea Nitrogen) 17 mg/dL (8.4-25.7); Calc. Creatinine Clearance 91 mL/min (70-130); Carbon Dioxide 27 mmol/L (22-29); Chloride 104 mmol/L (98-107); Estimated GFR 80; Glucose 97 mg/dL (70-105); Magnesium 1.7 mg/dL (1.6-2.6); Sodium 140 mmol/L (136-145)
[2024-07-03] MEDS: Clopidogrel Bisulfate 75 MG TAB PO SCH (10:16)
[2024-07-03 21:10] VITALS: BP 104/59; TEMP 98.1
== END 2024-07-04 16:00 | disposition home or self-care (01) | DRG 281 ==
LOC: ERS 15:31 → 2NO 17:19 → OBSVTOIN 07-02 11:29
PROVIDERS: ADMIT Internal Medicine; ATTEND Student in an Organized Health Care Education/Training Program
DX: I21.4 Non-ST elevation (NSTEMI) myocardial infarction (principal); I50.22 Chronic systolic (congestive) heart failure; Z59.00 Homelessness unspecified; I25.10 Atherosclerotic heart disease of native coronary artery without angina pectoris; I11.0 Hypertensive heart disease with heart failure; E11.9 Type 2 diabetes mellitus without complications; E78.5 Hyperlipidemia, unspecified; F17.210 Nicotine dependence, cigarettes, uncomplicated; Z95.1 Presence of aortocoronary bypass graft; Z91.148 Patient's other noncompliance with medication regimen for other reason; Z90.49 Acquired absence of other specified parts of digestive tract; Z88.5 Allergy status to narcotic agent; Z88.0 Allergy status to penicillin
CPT/HCPCS: 36415; 36416; 71045; 80048; 80053; 80306; 83735; 83880; 84484; 85025; 85379; 93005; 94640; 96372; J1650; J3490; J7620

== ENCOUNTER 2024-07-25 04:06 | Inpatient (IN) | payer OTHER ==
[2024-07-25] MEDS ORDERED: Aspirin Chewable 81 MG TAB ONE (04:13)
[2024-07-25] MEDS ORDERED: Nitroglycerin 0.4 MG TAB 1 EACH ONE ×2 (04:13→04:47)
[2024-07-25 04:52] LABS: #Basophils 0.04 10x3/uL (0.0-0.2); %Basophils 0.3 % (0.0-1.0); %Eosinophils 3.2 % (0.0-10.0); %Lymphocytes 22.1 % (21.0-51.0); %Monocytes 8.3 % (0.0-10.0); %Neutrophils 65.7 % (42.0-75.0); Hematocrit 46.1 % (42.0-52.0); Hemoglobin 15.6 g/dL (14.0-18.0); Mean Corpuscular HGB CONC 33.8 g/dL (32.0-36.0); Mean Corpuscular Hemoglobin 29.1 pg (27.0-31.0); Mean Corpuscular Volume 85.8 fL (78.0-98.0); Mean Platelet Volume 10.4 fL (7.4-10.4); Platelet Count 329 10x3/uL (130-400); RBC Distribution Width 13.5 % (11.5-14.5); Red Blood Cell (RBC) Count 5.37 mill/uL (4.70-6.10)
[2024-07-25 05:06] LABS: INR-International Normal Ratio 1.1; PTT 31.6 sec (22.9-36.1); Prothrombin Time 13.9 sec (12.0-14.7)
[2024-07-25 05:30] LABS: ALT (SGPT) 17 U/L (8-55); AST (SGOT) 24 U/L (5-34); Acetaminophen Less than 10 mcg/mL (Less than 10); Albumin 3.7 g/dL (3.5-5.0); Alcohol Less than 10.0 mg/dL (Less than 10); Alkaline Phosphatase 76 U/L (40-110); Anion Gap 16 mmol/L (10-20); BUN (Urea Nitrogen) 36 mg/dL (8.4-25.7); Calc. Creatinine Clearance 0 mL/min (70-130); Carbon Dioxide 19 mmol/L (22-29); Chloride 102 mmol/L (98-107); Estimated GFR 70; Globulin 3.6 g/dL (2.4-3.5); Glucose 156 mg/dL (70-105); Potassium 4.3 mmol/L (3.5-5.1); Protein, Total 7.3 g/dL (6.0-8.3); Salicylate Less than 8.0 mg/dL (Less than 8.0); Sodium 133 mmol/L (136-145)
[2024-07-25 05:40] LABS: Bilirubin, Total 0.3 mg/dL (0.2-1.2); Calcium 9.5 mg/dL (7.8-10.44); Lipase 26 U/L (8-78)
[2024-07-25 06:55] LABS: Troponin I 0.022 ng/mL (< 0.028)
[2024-07-25 08:14] LABS: Troponin I 0.359 ng/mL (< 0.028)
[2024-07-25] MEDS ORDERED: Ondansetron PF 4 MG/2 ML Vial IVP PRN (08:15)
[2024-07-25] MEDS ORDERED: Ondansetron ODT 4 MG TAB PO PRN (08:15)
[2024-07-25] MEDS ORDERED: Nitroglycerin 0.4 MG TAB (25 Tab Bottle) SL PRN (08:15)
[2024-07-25] MEDS ORDERED: Communication Order-Pharmacy FS SCH (08:20)
[2024-07-25] MEDS ORDERED: Aspirin 325 mg Enteric Coated Tablet PO SCH (09:00)
[2024-07-25 10:28] VITALS: BMI 29.2
[2024-07-25 10:32] LABS: Hematocrit 45.9 % (42.0-52.0); Hemoglobin 15.4 g/dL (14.0-18.0); Platelet Count 287 10x3/uL (130-400)
[2024-07-25] MEDS ORDERED: Aspirin 81 mg Enteric Coated Tablet ONE (10:36)
[2024-07-25] MEDS ORDERED: Lisinopril 5 MG TAB ONE (10:36)
[2024-07-25] MEDS ORDERED: Nitroglycerin 2% Ointment 1 INCH/1 GM Packet ONE (10:36)
[2024-07-25 11:17] LABS: Troponin I 1.271 ng/mL (< 0.028)
[2024-07-25] MEDS: Aspirin 81 mg Enteric Coated Tablet PO SCH (11:21)
[2024-07-25] MEDS: Nitroglycerin 2% Ointment 1 INCH/1 GM Packet TOP SCH (11:21)
[2024-07-25] MEDS: Lisinopril 5 MG TAB PO SCH (11:21)
[2024-07-25] MEDS ORDERED: Enoxaparin 100 MG (1 mL) SYRINGE ONE (13:53)
[2024-07-25] MEDS: Enoxaparin 100 MG (1 mL) SYRINGE SC SCH ×2 (13:58→20:44)
[2024-07-25 14:03] LABS: Amphetamine Detected (NotDetected); Barbiturates Screen Not Detected (NotDetected); Benzodiazepine Screen Not Detected (NotDetected); Cocaine Metabolite Screen Not Detected (NotDetected); Methadone Not Detected (NotDetected); Methamphetamine Detected (NotDetected); Opiate Screen Detected (NotDetected); Oxycodone Screen Not Detected (NotDetected); Phencyclidine (PCP) Not Detected (NotDetected); THC/Cannabinoid Screen Not Detected (NotDetected); Tricyclic Screen Not Detected (NotDetected)
[2024-07-25] MEDS: Carvedilol 3.125 MG TAB PO SCH (17:44)
[2024-07-25] MEDS: Atorvastatin Calcium 40 MG TAB PO SCH (20:44)
[2024-07-25] MEDS: Clopidogrel Bisulfate 75 MG TAB PO SCH (20:44)
[2024-07-26] MEDS: Acetaminophen 325 MG TAB PO PRN (00:34)
[2024-07-26 05:40] LABS: #Basophils 0.04 10x3/uL (0.0-0.2); %Basophils 0.4 % (0.0-1.0); %Eosinophils 3.9 % (0.0-10.0); %Lymphocytes 34.4 % (21.0-51.0); %Monocytes 11.9 % (0.0-10.0); %Neutrophils 49.1 % (42.0-75.0); Hematocrit 46.8 % (42.0-52.0); Mean Corpuscular HGB CONC 34.2 g/dL (32.0-36.0); Mean Corpuscular Hemoglobin 28.7 pg (27.0-31.0); Mean Corpuscular Volume 83.9 fL (78.0-98.0); Platelet Count 296 10x3/uL (130-400); RBC Distribution Width 13.2 % (11.5-14.5); Red Blood Cell (RBC) Count 5.58 mill/uL (4.70-6.10)
[2024-07-26 05:47] LABS: Anion Gap 14 mmol/L (10-20); BUN (Urea Nitrogen) 23 mg/dL (8.4-25.7); Calc. Creatinine Clearance 123 mL/min (70-130); Carbon Dioxide 23 mmol/L (22-29); Chloride 105 mmol/L (98-107); Estimated GFR 102; Glucose 106 mg/dL (70-105); Potassium 4.2 mmol/L (3.5-5.1); Sodium 138 mmol/L (136-145)
[2024-07-26] MEDS: FLU (Fluarix Triv) TS24-25(6MOS UP)/PF 45 MCG/0.5 ML Syringe IM ONE (08:42)
[2024-07-26] MEDS: Sodium Chloride 0.9% 500 ML IVPB SCH (14:04)
[2024-07-27 04:50] LABS: Hemoglobin A1c 5.9 % (4.0-6.0)
[2024-07-27 11:06] VITALS: BP 99/59; TEMP 97.9
== END 2024-07-27 14:45 | disposition home or self-care (01) | DRG 281 ==
LOC: ERS 04:06 → ERHOLD 07:33 → OBS 16:59 → OBSVTOIN 07-26 14:14
PROVIDERS: ADMIT Internal Medicine; ATTEND Internal Medicine
DX: I21.4 Non-ST elevation (NSTEMI) myocardial infarction (principal); I50.22 Chronic systolic (congestive) heart failure; Z59.00 Homelessness unspecified; I25.10 Atherosclerotic heart disease of native coronary artery without angina pectoris; E11.9 Type 2 diabetes mellitus without complications; I11.0 Hypertensive heart disease with heart failure; E78.5 Hyperlipidemia, unspecified; F17.210 Nicotine dependence, cigarettes, uncomplicated; Z90.49 Acquired absence of other specified parts of digestive tract; Z88.5 Allergy status to narcotic agent; Z88.0 Allergy status to penicillin; Z95.1 Presence of aortocoronary bypass graft
CPT/HCPCS: 36415; 71045; 80048; 80053; 80306; 80307; 83036; 83690; 84484; 85025; 85610; 85730; 93005; 93010; 96372; G0378; J1650

== ENCOUNTER 2024-07-27 15:49 | Inpatient (IN) | payer OTHER ==
[2024-07-27 16:17] LABS: #Basophils 0.05 10x3/uL (0.0-0.2); %Basophils 0.6 % (0.0-1.0); %Lymphocytes 32.6 % (21.0-51.0); %Monocytes 11.8 % (0.0-10.0); %Neutrophils 49.8 % (42.0-75.0); Hemoglobin 15.1 g/dL (14.0-18.0); Mean Corpuscular HGB CONC 33.6 g/dL (32.0-36.0); Mean Corpuscular Hemoglobin 28.7 pg (27.0-31.0); Mean Corpuscular Volume 85.4 fL (78.0-98.0); Mean Platelet Volume 9.6 fL (7.4-10.4); Platelet Count 273 10x3/uL (130-400); Red Blood Cell (RBC) Count 5.27 mill/uL (4.70-6.10)
[2024-07-27] MEDS ORDERED: Acetaminophen 500 MG TAB ONE (16:27)
[2024-07-27 16:42] LABS: ALT (SGPT) 25 U/L (8-55); AST (SGOT) 40 U/L (5-34); Albumin 3.4 g/dL (3.5-5.0); Alkaline Phosphatase 63 U/L (40-110); Anion Gap 14 mmol/L (10-20); BUN (Urea Nitrogen) 22 mg/dL (8.4-25.7); Bilirubin, Total 0.4 mg/dL (0.2-1.2); Calc. Creatinine Clearance 0 mL/min (70-130); Calcium 8.8 mg/dL (7.8-10.44); Carbon Dioxide 23 mmol/L (22-29); Chloride 106 mmol/L (98-107); Estimated GFR 91; Globulin 2.9 g/dL (2.4-3.5); Glucose 94 mg/dL (70-105); Potassium 4.7 mmol/L (3.5-5.1); Protein, Total 6.3 g/dL (6.0-8.3); Sodium 138 mmol/L (136-145)
[2024-07-27 16:43] LABS: Troponin I 6.523 ng/mL (< 0.028)
[2024-07-27] MEDS ORDERED: Aspirin Chewable 81 MG TAB ONE (16:48)
[2024-07-27] MEDS ORDERED: Ketorolac Tromethamine 30 MG (1 mL) VIAL IVP PRN (17:20)
[2024-07-27] MEDS ORDERED: Acetaminophen 650 MG Suppository PR PRN (17:20)
[2024-07-27] MEDS ORDERED: Acetaminophen 325 MG TAB PO PRN (17:20)
[2024-07-27] MEDS ORDERED: Nitroglycerin 0.4 MG TAB (25 Tab Bottle) SL PRN (17:20)
[2024-07-27] MEDS ORDERED: Enoxaparin 80 MG (0.8 mL) SYRINGE ONE (17:36)
[2024-07-27 18:17] LABS: Magnesium 1.9 mg/dL (1.6-2.6)
[2024-07-27 18:18] LABS: Acetaminophen Less than 10 mcg/mL (Less than 10); Alcohol Less than 10.0 mg/dL (Less than 10); Salicylate Less than 8.0 mg/dL (Less than 8.0)
[2024-07-27] MEDS ORDERED: Ipratropium/Albuterol 3 ML NEB NEB PRN (18:44)
[2024-07-27] MEDS: Magnesium 2 GM/50 ML(in water) 2 GM in Premix 1 BAG IVPB SCH (20:58)
[2024-07-27] MEDS: Atorvastatin Calcium 40 MG TAB PO SCH (20:58)
[2024-07-27] MEDS: Nitroglycerin 2% Ointment 1 INCH/1 GM Packet TOP SCH (21:00)
[2024-07-27 23:53] LABS: Troponin I 6.507 ng/mL (< 0.028)
[2024-07-28 04:30] LABS: #Basophils 0.04 10x3/uL (0.0-0.2); %Basophils 0.4 % (0.0-1.0); %Eosinophils 6.6 % (0.0-10.0); %Lymphocytes 42.7 % (21.0-51.0); %Monocytes 10.4 % (0.0-10.0); %Neutrophils 39.6 % (42.0-75.0); Hematocrit 43.7 % (42.0-52.0); Hemoglobin 14.7 g/dL (14.0-18.0); Mean Corpuscular HGB CONC 33.6 g/dL (32.0-36.0); Mean Corpuscular Hemoglobin 28.9 pg (27.0-31.0); Mean Corpuscular Volume 85.9 fL (78.0-98.0); Mean Platelet Volume 9.7 fL (7.4-10.4); Platelet Count 262 10x3/uL (130-400); RBC Distribution Width 13.1 % (11.5-14.5); Red Blood Cell (RBC) Count 5.09 mill/uL (4.70-6.10)
[2024-07-28 05:11] LABS: Anion Gap 12 mmol/L (10-20); BUN (Urea Nitrogen) 20 mg/dL (8.4-25.7); Calc. Creatinine Clearance 95 mL/min (70-130); Calcium 8.9 mg/dL (7.8-10.44); Carbon Dioxide 27 mmol/L (22-29); Chloride 105 mmol/L (98-107); Cholesterol 156 mg/dl (< 200 Desired); Estimated GFR 85; Glucose 95 mg/dL (70-105); HDL Cholesterol 31 mg/dL (>60 Neg Risk); LDL Cholesterol, Calculated 111 mg/dL; Potassium 4.3 mmol/L (3.5-5.1); Sodium 140 mmol/L (136-145); Triglycerides 72 mg/dL (Less than 150)
[2024-07-28 05:15] LABS: Troponin I 7.772 ng/mL (< 0.028)
[2024-07-28] MEDS: Communication Order-Pharmacy FS ONE (07:30)
[2024-07-28] MEDS: Enoxaparin 80 MG (0.8 mL) SYRINGE SC SCH (09:15)
[2024-07-28] MEDS: Aspirin Chewable 81 MG TAB PO SCH (09:16)
[2024-07-28] MEDS: Lisinopril 5 MG TAB PO SCH (09:16)
[2024-07-28] MEDS: Clopidogrel Bisulfate 75 MG TAB PO SCH (09:16)
[2024-07-28] MEDS: Carvedilol 3.125 MG TAB PO SCH (09:16)
[2024-07-28 10:11] LABS: Amphetamine Not Detected (NotDetected); Barbiturates Screen Not Detected (NotDetected); Benzodiazepine Screen Not Detected (NotDetected); Cocaine Metabolite Screen Not Detected (NotDetected); Methadone Not Detected (NotDetected); Methamphetamine Detected (NotDetected); Opiate Screen Not Detected (NotDetected); Oxycodone Screen Not Detected (NotDetected); Phencyclidine (PCP) Not Detected (NotDetected); THC/Cannabinoid Screen Not Detected (NotDetected); Tricyclic Screen Not Detected (NotDetected)
[2024-07-28 11:06] VITALS: BMI 28.5
[2024-07-28 13:29] LABS: Critical Call Chem Troponin I LOW; Troponin I 5.304 ng/mL (< 0.028)
[2024-07-28] MEDS: Furosemide 40 MG (4 mL) VIAL SLOW IVP SCH ×2 (13:58→19:50)
[2024-07-29 04:29] LABS: #Basophils 0.05 10x3/uL (0.0-0.2); %Basophils 0.5 % (0.0-1.0); %Eosinophils 6.3 % (0.0-10.0); %Lymphocytes 32.8 % (21.0-51.0); %Monocytes 11.6 % (0.0-10.0); %Neutrophils 48.5 % (42.0-75.0); Hematocrit 46.2 % (42.0-52.0); Hemoglobin 15.8 g/dL (14.0-18.0); Mean Corpuscular HGB CONC 34.2 g/dL (32.0-36.0); Mean Corpuscular Volume 84.8 fL (78.0-98.0); Mean Platelet Volume 9.5 fL (7.4-10.4); Platelet Count 275 10x3/uL (130-400); RBC Distribution Width 13.2 % (11.5-14.5); Red Blood Cell (RBC) Count 5.45 mill/uL (4.70-6.10)
[2024-07-29 04:44] LABS: Anion Gap 15 mmol/L (10-20); BUN (Urea Nitrogen) 27 mg/dL (8.4-25.7); Calc. Creatinine Clearance 99 mL/min (70-130); Calcium 9.2 mg/dL (7.8-10.44); Carbon Dioxide 24 mmol/L (22-29); Chloride 102 mmol/L (98-107); Estimated GFR 89; Glucose 107 mg/dL (70-105); Potassium 4.2 mmol/L (3.5-5.1); Sodium 137 mmol/L (136-145)
[2024-07-29] MEDS: Furosemide 40 MG (4 mL) VIAL SLOW IVP SCH (06:39)
[2024-07-29] MEDS ORDERED: Ipratropium/Albuterol 3 ML NEB NEB PRN (14:08)
[2024-07-29 19:47] VITALS: BMI 28.4
[2024-07-30 04:15] LABS: #Basophils 0.04 10x3/uL (0.0-0.2); %Basophils 0.4 % (0.0-1.0); %Eosinophils 6.4 % (0.0-10.0); %Monocytes 9.6 % (0.0-10.0); %Neutrophils 38.3 % (42.0-75.0); Hematocrit 44.1 % (42.0-52.0); Hemoglobin 15.1 g/dL (14.0-18.0); Mean Corpuscular HGB CONC 34.2 g/dL (32.0-36.0); Mean Corpuscular Volume 84.8 fL (78.0-98.0); Mean Platelet Volume 9.8 fL (7.4-10.4); Platelet Count 283 10x3/uL (130-400); RBC Distribution Width 12.9 % (11.5-14.5)
[2024-07-30 04:30] LABS: Anion Gap 16 mmol/L (10-20); BUN (Urea Nitrogen) 22 mg/dL (8.4-25.7); Calc. Creatinine Clearance 96 mL/min (70-130); Calcium 9.1 mg/dL (7.8-10.44); Carbon Dioxide 27 mmol/L (22-29); Chloride 99 mmol/L (98-107); Estimated GFR 86; Glucose 94 mg/dL (70-105); Potassium 3.9 mmol/L (3.5-5.1); Sodium 138 mmol/L (136-145)
[2024-07-31 05:08] LABS: #Basophils 0.05 10x3/uL (0.0-0.2); %Basophils 0.5 % (0.0-1.0); %Eosinophils 6.3 % (0.0-10.0); %Lymphocytes 39.9 % (21.0-51.0); %Monocytes 9.1 % (0.0-10.0); %Neutrophils 43.6 % (42.0-75.0); Hematocrit 46.6 % (42.0-52.0); Hemoglobin 15.6 g/dL (14.0-18.0); Mean Corpuscular HGB CONC 33.5 g/dL (32.0-36.0); Mean Corpuscular Hemoglobin 28.4 pg (27.0-31.0); Mean Corpuscular Volume 84.7 fL (78.0-98.0); Platelet Count 282 10x3/uL (130-400); RBC Distribution Width 12.9 % (11.5-14.5)
[2024-07-31 05:28] LABS: Anion Gap 14 mmol/L (10-20); BUN (Urea Nitrogen) 29 mg/dL (8.4-25.7); Calc. Creatinine Clearance 89 mL/min (70-130); Calcium 9.1 mg/dL (7.8-10.44); Carbon Dioxide 30 mmol/L (22-29); Chloride 96 mmol/L (98-107); Estimated GFR 79; Glucose 102 mg/dL (70-105); Sodium 136 mmol/L (136-145)
[2024-08-01 05:15] LABS: #Basophils 0.04 10x3/uL (0.0-0.2); %Basophils 0.4 % (0.0-1.0); %Eosinophils 5.8 % (0.0-10.0); %Lymphocytes 40.7 % (21.0-51.0); %Monocytes 9.6 % (0.0-10.0); %Neutrophils 43.2 % (42.0-75.0); Hemoglobin 15.9 g/dL (14.0-18.0); Mean Corpuscular HGB CONC 34.6 g/dL (32.0-36.0); Mean Corpuscular Hemoglobin 28.9 pg (27.0-31.0); Mean Corpuscular Volume 83.5 fL (78.0-98.0); Mean Platelet Volume 9.9 fL (7.4-10.4); Platelet Count 247 10x3/uL (130-400); RBC Distribution Width 12.8 % (11.5-14.5); Red Blood Cell (RBC) Count 5.51 mill/uL (4.70-6.10)
[2024-08-01 05:28] LABS: Anion Gap 14 mmol/L (10-20); BUN (Urea Nitrogen) 25 mg/dL (8.4-25.7); Calc. Creatinine Clearance 106 mL/min (70-130); Calcium 8.9 mg/dL (7.8-10.44); Carbon Dioxide 23 mmol/L (22-29); Chloride 99 mmol/L (98-107); Estimated GFR 98; Glucose 99 mg/dL (70-105); Potassium 4.2 mmol/L (3.5-5.1); Sodium 132 mmol/L (136-145)
[2024-08-01 12:28] VITALS: BP 96/58; TEMP 98
== END 2024-08-01 13:39 | disposition home or self-care (01) | DRG 281 ==
LOC: ERS 15:49 → OBS 17:33 → OBSVTOIN 07-28 13:06
PROVIDERS: ADMIT Internal Medicine; ATTEND Internal Medicine
DX: I21.4 Non-ST elevation (NSTEMI) myocardial infarction (principal); I50.22 Chronic systolic (congestive) heart failure; Z59.00 Homelessness unspecified; I11.0 Hypertensive heart disease with heart failure; I25.10 Atherosclerotic heart disease of native coronary artery without angina pectoris; I24.9 Acute ischemic heart disease, unspecified; E11.9 Type 2 diabetes mellitus without complications; E78.5 Hyperlipidemia, unspecified; F15.10 Other stimulant abuse, uncomplicated; Z90.49 Acquired absence of other specified parts of digestive tract; Z95.5 Presence of coronary angioplasty implant and graft; Z91.148 Patient's other noncompliance with medication regimen for other reason; Z88.8 Allergy status to other drugs, medicaments and biological substances; Z91.141 Patient's other noncompliance with medication regimen due to financial hardship; Z60.8 Other problems related to social environment; Z88.0 Allergy status to penicillin; Z79.82 Long term (current) use of aspirin; Z79.899 Other long term (current) drug therapy
CPT/HCPCS: 36415; 36416; 71045; 80048; 80053; 80061; 80306; 80307; 83735; 83880; 84484; 85025; 93005; 93798; 96372; 96374; G0378; J1650; J1940; J3475

== ENCOUNTER 2024-09-20 00:20 | Emergency (ER) | payer OTHER ==
[2024-09-20 00:50] LABS: #Basophils 0.03 10x3/uL (0.0-0.2); %Basophils 0.3 % (0.0-1.0); %Eosinophils 4.5 % (0.0-10.0); %Lymphocytes 33.7 % (21.0-51.0); %Monocytes 12.2 % (0.0-10.0); Hematocrit 37.8 % (42.0-52.0); Hemoglobin 12.2 g/dL (14.0-18.0); Mean Corpuscular HGB CONC 32.3 g/dL (32.0-36.0); Mean Corpuscular Hemoglobin 28.2 pg (27.0-31.0); Mean Corpuscular Volume 87.3 fL (78.0-98.0); Platelet Count 213 10x3/uL (130-400); RBC Distribution Width 14.3 % (11.5-14.5); Red Blood Cell (RBC) Count 4.33 mill/uL (4.70-6.10)
[2024-09-20 01:07] LABS: ALT (SGPT) 26 U/L (Less than 45); AST (SGOT) 27 U/L (11-34); Albumin 3.4 g/dL (3.1-4.5); Alkaline Phosphatase 76 U/L (40-110); Anion Gap 15 mmol/L (10-20); BUN (Urea Nitrogen) 16 mg/dL (8.4-25.7); Bilirubin, Total 0.3 mg/dL (0.3-1.2); Calc. Creatinine Clearance 0 mL/min (70-130); Calcium 8.9 mg/dL (7.8-10.44); Carbon Dioxide 23 mmol/L (22-29); Chloride 108 mmol/L (98-107); Estimated GFR 74; Glucose 105 mg/dL (70-105); Potassium 4.5 mmol/L (3.5-5.1); Protein, Total 6.4 g/dL (6.0-8.3); Sodium 141 mmol/L (136-145)
[2024-09-20 01:09] LABS: Lipase 29 U/L (8-78)
[2024-09-20] MEDS ORDERED: Furosemide 40 MG (4 mL) VIAL ONE (01:09)
[2024-09-20] MEDS ORDERED: Morphine 4 MG/ML VIAL ONE (01:21)
[2024-09-20 04:01] LABS: Troponin I 0.066 ng/mL (< 0.028)
[2024-09-20 04:09] LABS: Amphetamine Detected (NotDetected); Barbiturates Screen Not Detected (NotDetected); Benzodiazepine Screen Not Detected (NotDetected); Cocaine Metabolite Screen Not Detected (NotDetected); Methadone Not Detected (NotDetected); Methamphetamine Detected (NotDetected); Opiate Screen Not Detected (NotDetected); Oxycodone Screen Not Detected (NotDetected); Phencyclidine (PCP) Not Detected (NotDetected); THC/Cannabinoid Screen Not Detected (NotDetected); Tricyclic Screen Not Detected (NotDetected)
== END 2024-09-20 04:30 | disposition home or self-care (01) ==
LOC: ERS 00:20
DX: I11.0 Hypertensive heart disease with heart failure (principal); I50.9 Heart failure, unspecified; I25.10 Atherosclerotic heart disease of native coronary artery without angina pectoris; E78.5 Hyperlipidemia, unspecified; F17.210 Nicotine dependence, cigarettes, uncomplicated
CPT/HCPCS: 36415; 71045; 80053; 80306; 83690; 83735; 83880; 84484; 85025; 87428; 93005; 94760; 96374; 96375; J1940; J2270

== ENCOUNTER 2025-05-15 09:02 | Inpatient (IN) | payer OTHER ==
[2025-05-15] MEDS ORDERED: Acetaminophen 325 MG TAB PO PRN (14:29)
[2025-05-15] MEDS ORDERED: Ondansetron PF 4 MG/2 ML Vial IVP PRN (14:29)
[2025-05-15] MEDS ORDERED: Dextrose 50% Abboject 50 ML SYRINGE SLOW IVP PRN (14:29)
[2025-05-15] MEDS ORDERED: Glucagon 1 MG/ML KIT IM PRN (14:29)
[2025-05-15] MEDS: Carvedilol 3.125 MG TAB PO SCH (17:53)
[2025-05-15] MEDS ORDERED: Carvedilol 3.125 MG TAB PO SCH (21:00)
[2025-05-16 05:03] LABS: #Basophils 0.05 10x3/uL (0.0-0.2); #Eosinophils 0.21 10x3/uL (0.0-0.7); #Monocytes 0.72 10x3/uL (0.11-0.59); #Neutrophils 4.54 10x3/uL (1.40-6.50); %Basophils 0.6 % (0.0-1.0); %Eosinophils 2.6 % (0.0-10.0); %Lymphocytes 31.9 % (21.0-51.0); %Monocytes 8.8 % (0.0-10.0); %Neutrophils 55.9 % (42.0-75.0); Hematocrit 37.1 % (42.0-52.0); Hemoglobin 12.0 g/dL (14.0-18.0); Mean Corpuscular Hemoglobin 28.0 pg (27.0-31.0); Mean Corpuscular Volume 86.5 fL (78.0-98.0); Platelet Count 265 10x3/uL (130-400); Red Blood Cell (RBC) Count 4.29 mill/uL (4.70-6.10); White Blood Cell (WBC) Count 8.14 10x3/uL (4.8-10.8)
[2025-05-16] MEDS: Furosemide 40 MG (4 mL) VIAL SLOW IVP SCH (05:17)
[2025-05-16 05:25] LABS: Anion Gap 14 mmol/L (10-20); BUN (Urea Nitrogen) 13 mg/dL (8.4-25.7); Calc. Creatinine Clearance 0 mL/min (70-130); Calcium 8.6 mg/dL (7.8-10.44); Carbon Dioxide 25 mmol/L (22-29); Chloride 104 mmol/L (98-107); Glucose 138 mg/dL (70-105); Potassium 3.7 mmol/L (3.5-5.1); Sodium 139 mmol/L (136-145)
[2025-05-16] MEDS: Enoxaparin 40 MG (0.4 mL) SYRINGE SC SCH (08:46)
[2025-05-16 09:42] VITALS: BMI 33.4
[2025-05-16] MEDS: levETIRAcetam 500 MG TAB PO SCH (20:11)
[2025-05-17 05:07] LABS: #Basophils 0.04 10x3/uL (0.0-0.2); #Eosinophils 0.36 10x3/uL (0.0-0.7); #Monocytes 1.00 10x3/uL (0.11-0.59); #Neutrophils 4.38 10x3/uL (1.40-6.50); %Basophils 0.4 % (0.0-1.0); %Eosinophils 4.0 % (0.0-10.0); %Lymphocytes 35.5 % (21.0-51.0); %Monocytes 11.1 % (0.0-10.0); %Neutrophils 48.9 % (42.0-75.0); Hematocrit 41.1 % (42.0-52.0); Hemoglobin 13.0 g/dL (14.0-18.0); Mean Corpuscular Hemoglobin 27.7 pg (27.0-31.0); Mean Corpuscular Volume 87.4 fL (78.0-98.0); Platelet Count 292 10x3/uL (130-400); Red Blood Cell (RBC) Count 4.70 mill/uL (4.70-6.10); White Blood Cell (WBC) Count 8.98 10x3/uL (4.8-10.8)
[2025-05-17 05:25] LABS: Anion Gap 11 mmol/L (10-20); BUN (Urea Nitrogen) 17 mg/dL (8.4-25.7); Calc. Creatinine Clearance 84 mL/min (70-130); Calcium 8.9 mg/dL (7.8-10.44); Carbon Dioxide 29 mmol/L (22-29); Chloride 101 mmol/L (98-107); Glucose 116 mg/dL (70-105); Potassium 3.5 mmol/L (3.5-5.1); Sodium 137 mmol/L (136-145)
[2025-05-17] MEDS ORDERED: Electrolyte Replacement Protocol 1 EACH FS PRN (08:27)
[2025-05-17 09:14] LABS: Magnesium 1.8 mg/dL (1.6-2.6)
[2025-05-17] MEDS: Citalopram 20 MG TAB PO SCH (09:19)
[2025-05-17] MEDS: Lisinopril 5 MG TAB PO SCH (09:19)
[2025-05-17] MEDS: Aspirin 81 mg Enteric Coated Tablet PO SCH (09:20)
[2025-05-17] MEDS: Magnesium 2 GM/50 ML(in water) 2 GM in Premix 1 BAG IVPB SCH (11:05)
[2025-05-17 11:32] LABS: Cocaine Metabolite Screen Negative (Negative); THC/Cannabinoid Screen Negative (Negative); Tricyclic Screen Negative (Negative)
[2025-05-18 05:56] LABS: Anion Gap 13 mmol/L (10-20); BUN (Urea Nitrogen) 15 mg/dL (8.4-25.7); Calc. Creatinine Clearance 88 mL/min (70-130); Calcium 8.9 mg/dL (7.8-10.44); Carbon Dioxide 24 mmol/L (22-29); Chloride 104 mmol/L (98-107); Glucose 118 mg/dL (70-105); Magnesium 2.2 mg/dL (1.6-2.6); Potassium 4.4 mmol/L (3.5-5.1); Sodium 137 mmol/L (136-145)
[2025-05-19 05:42] LABS: Anion Gap 11 mmol/L (10-20); BUN (Urea Nitrogen) 17 mg/dL (8.4-25.7); Calc. Creatinine Clearance 88 mL/min (70-130); Calcium 9.2 mg/dL (7.8-10.44); Carbon Dioxide 28 mmol/L (22-29); Chloride 105 mmol/L (98-107); Glucose 102 mg/dL (70-105); Potassium 4.7 mmol/L (3.5-5.1); Sodium 139 mmol/L (136-145)
[2025-05-20 05:46] LABS: Anion Gap 16 mmol/L (10-20); BUN (Urea Nitrogen) 18 mg/dL (8.4-25.7); Calc. Creatinine Clearance 101 mL/min (70-130); Calcium 9.4 mg/dL (7.8-10.44); Carbon Dioxide 26 mmol/L (22-29); Chloride 106 mmol/L (98-107); Glucose 108 mg/dL (70-105); Potassium 4.6 mmol/L (3.5-5.1); Sodium 143 mmol/L (136-145)
[2025-05-20] MEDS: Furosemide 20 MG TAB PO SCH (08:29)
[2025-05-20] MEDS: Spironolactone 25 MG TAB PO SCH (08:29)
[2025-05-20 15:32] VITALS: BP 110/68; TEMP 98
[2025-05-21] MEDS ORDERED: Spironolactone 25 MG TAB PO SCH (08:00)
[2025-05-21] MEDS ORDERED: Lisinopril 5 MG TAB PO SCH (09:00)
== END 2025-05-20 17:00 | disposition home or self-care (01) | DRG 917 ==
LOC: 2NO 12:47
PROVIDERS: ADMIT Internal Medicine; ATTEND Student in an Organized Health Care Education/Training Program
DX: T43.621A Poisoning by amphetamines, accidental (unintentional), initial encounter (principal); I50.33 Acute on chronic diastolic (congestive) heart failure; I11.0 Hypertensive heart disease with heart failure; E11.9 Type 2 diabetes mellitus without complications; I25.10 Atherosclerotic heart disease of native coronary artery without angina pectoris; J44.9 Chronic obstructive pulmonary disease, unspecified; R56.9 Unspecified convulsions; F17.210 Nicotine dependence, cigarettes, uncomplicated; F10.90 Alcohol use, unspecified, uncomplicated; E78.5 Hyperlipidemia, unspecified; F41.9 Anxiety disorder, unspecified; E87.6 Hypokalemia; I25.5 Ischemic cardiomyopathy; F15.10 Other stimulant abuse, uncomplicated; E83.42 Hypomagnesemia; Z88.0 Allergy status to penicillin; Z91.018 Allergy to other foods; Z88.5 Allergy status to narcotic agent; Z82.49 Family history of ischemic heart disease and other diseases of the circulatory system; Z91.199 Patient's noncompliance with other medical treatment and regimen due to unspecified reason; Z79.899 Other long term (current) drug therapy; Z95.1 Presence of aortocoronary bypass graft; Z79.82 Long term (current) use of aspirin
CPT/HCPCS: 36415; 36416; 80048; 80306; 83036; 83735; 83880; 85025; 93306; 97139; J1650; J1815; J1940; J3475

== ENCOUNTER 2025-07-28 12:54 | Inpatient (IN) | payer OTHER ==
[2025-07-28] MEDS ORDERED: Furosemide 40 MG (4 mL) VIAL ONE (13:49)
[2025-07-28 21:05] LABS: ALT (SGPT) 290 U/L (Less than 45); AST (SGOT) 131 U/L (11-34); Albumin 3.2 g/dL (3.1-4.5); Alkaline Phosphatase 85 U/L (40-110); Anion Gap 16 mmol/L (10-20); BUN (Urea Nitrogen) 12 mg/dL (8.4-25.7); Bilirubin, Total 1.6 mg/dL (0.3-1.2); Calc. Creatinine Clearance 0 mL/min (70-130); Calcium 8.8 mg/dL (7.8-10.44); Carbon Dioxide 26 mmol/L (22-29); Chloride 100 mmol/L (98-107); Globulin 3.4 g/dL (2.4-3.5); Glucose 155 mg/dL (70-105); Potassium 3.9 mmol/L (3.5-5.1); Sodium 138 mmol/L (136-145)
[2025-07-28 21:42] LABS: #Basophils Less than 0.03 10x3/uL (0.0-0.2); #Eosinophils 0.10 10x3/uL (0.0-0.7); #Monocytes 1.06 10x3/uL (0.11-0.59); #Neutrophils 4.01 10x3/uL (1.40-6.50); %Basophils 0.3 % (0.0-1.0); %Eosinophils 1.3 % (0.0-10.0); %Lymphocytes 31.8 % (21.0-51.0); %Monocytes 13.9 % (0.0-10.0); %Neutrophils 52.3 % (42.0-75.0); Hematocrit 38.5 % (42.0-52.0); Hemoglobin 11.7 g/dL (14.0-18.0); Mean Corpuscular Hemoglobin 24.6 pg (27.0-31.0); Mean Corpuscular Volume 80.9 fL (78.0-98.0); Platelet Count 253 10x3/uL (130-400); Red Blood Cell (RBC) Count 4.76 mill/uL (4.70-6.10); White Blood Cell (WBC) Count 7.65 10x3/uL (4.8-10.8)
[2025-07-28] MEDS ORDERED: Aspirin Chewable 81 MG TAB ONE (22:27)
[2025-07-28] MEDS ORDERED: Bisacodyl 10 MG SUPP PR PRN (22:44)
[2025-07-28] MEDS ORDERED: Senokot S 8.6-50 MG TAB PO PRN (22:44)
[2025-07-28] MEDS ORDERED: Ondansetron PF 4 MG/2 ML Vial IVP PRN (22:44)
[2025-07-28] MEDS ORDERED: Electrolyte Replacement Protocol 1 EACH FS SCH (22:45)
[2025-07-28] MEDS ORDERED: PHOS-NAK 1 PKT PACK PO PRN (23:00)
[2025-07-28] MEDS ORDERED: Magnesium Sulfate In Water 4 GM in Premix 1 BAG IVPB PRN (23:00)
[2025-07-28] MEDS ORDERED: Potassium Chloride 20 MEQ in Premix 1 BAG IVPB PRN (23:00)
[2025-07-28 23:32] LABS: Acetaminophen Less than 10 mcg/mL (Less than 10); Salicylate Less than 8.0 mg/dL (Less than 8.0)
[2025-07-28] MEDS ORDERED: Dextrose 50% Abboject 50 ML SYRINGE SLOW IVP PRN (23:37)
[2025-07-28] MEDS ORDERED: Glucagon 1 MG/ML KIT IM PRN (23:37)
[2025-07-29 00:02] LABS: Cocaine Metabolite Screen Negative (Negative); THC/Cannabinoid Screen Negative (Negative); Tricyclic Screen Negative (Negative)
[2025-07-29 01:56] VITALS: BMI 31.9
[2025-07-29] MEDS ORDERED: Benzonatate 100 MG CAP ONE (01:58)
[2025-07-29] MEDS: Benzonatate 100 MG CAP PO SCH ×2 (02:03→10:13)
[2025-07-29 07:39] LABS: #Basophils 0.03 10x3/uL (0.0-0.2); #Eosinophils 0.16 10x3/uL (0.0-0.7); #Monocytes 1.32 10x3/uL (0.11-0.59); #Neutrophils 4.34 10x3/uL (1.40-6.50); %Basophils 0.3 % (0.0-1.0); %Eosinophils 1.8 % (0.0-10.0); %Lymphocytes 32.1 % (21.0-51.0); %Monocytes 15.2 % (0.0-10.0); %Neutrophils 50.3 % (42.0-75.0); Hematocrit 39.1 % (42.0-52.0); Hemoglobin 12.1 g/dL (14.0-18.0); Mean Corpuscular Hemoglobin 24.8 pg (27.0-31.0); Mean Corpuscular Volume 80.1 fL (78.0-98.0); Platelet Count 246 10x3/uL (130-400); Red Blood Cell (RBC) Count 4.88 mill/uL (4.70-6.10); White Blood Cell (WBC) Count 8.66 10x3/uL (4.8-10.8)
[2025-07-29 07:59] LABS: ALT (SGPT) 243 U/L (Less than 45); AST (SGOT) 86 U/L (11-34); Albumin 2.9 g/dL (3.1-4.5); Alkaline Phosphatase 81 U/L (40-110); Anion Gap 14 mmol/L (10-20); BUN (Urea Nitrogen) 11 mg/dL (8.4-25.7); Bilirubin, Total 1.2 mg/dL (0.3-1.2); Calc. Creatinine Clearance 115 mL/min (70-130); Calcium 8.4 mg/dL (7.8-10.44); Carbon Dioxide 24 mmol/L (22-29); Chloride 102 mmol/L (98-107); Globulin 3.2 g/dL (2.4-3.5); Glucose 159 mg/dL (70-105); Magnesium 1.7 mg/dL (1.6-2.6); Potassium 4.1 mmol/L (3.5-5.1); Sodium 136 mmol/L (136-145)
[2025-07-29] MEDS: Torsemide 20 MG TAB PO SCH (10:13)
[2025-07-29] MEDS: Aspirin 81 mg Enteric Coated Tablet PO SCH (10:13)
[2025-07-29] MEDS: Enoxaparin 40 MG (0.4 mL) SYRINGE SC SCH (10:14)
[2025-07-29] MEDS: Lisinopril 2.5 MG TAB PO SCH (10:14)
[2025-07-29] MEDS: Spironolactone 25 MG TAB PO SCH (10:14)
[2025-07-29] MEDS: Ketorolac Tromethamine 30 MG (1 mL) VIAL IVP PRN (13:35)
[2025-07-29] MEDS: Carvedilol 3.125 MG TAB PO SCH (17:47)
[2025-07-29] MEDS: levETIRAcetam 500 MG TAB PO SCH (21:23)
[2025-07-30 05:19] LABS: Anion Gap 16 mmol/L (10-20); BUN (Urea Nitrogen) 16 mg/dL (8.4-25.7); Calc. Creatinine Clearance 73 mL/min (70-130); Calcium 8.8 mg/dL (7.8-10.44); Carbon Dioxide 27 mmol/L (22-29); Chloride 98 mmol/L (98-107); Glucose 156 mg/dL (70-105); Potassium 4.2 mmol/L (3.5-5.1); Sodium 137 mmol/L (136-145)
[2025-07-30] MEDS ORDERED: Torsemide 20 MG TAB PO SCH (08:00)
[2025-07-30] MEDS ORDERED: Spironolactone 25 MG TAB PO SCH (08:00)
[2025-07-30 11:48] LABS: Magnesium 1.7 mg/dL (1.6-2.6)
[2025-07-30] MEDS: Acetaminophen 325 MG TAB PO PRN (20:30)
[2025-07-30] MEDS: Guaifenesin DM 100-10/5 ML UDCUP PO PRN (20:31)
[2025-07-30] MEDS: guaiFENesin/DM ER PO SCH (21:19)
[2025-07-31 05:07] LABS: Anion Gap 17 mmol/L (10-20); BUN (Urea Nitrogen) 25 mg/dL (8.4-25.7); Calc. Creatinine Clearance 67 mL/min (70-130); Calcium 8.5 mg/dL (7.8-10.44); Carbon Dioxide 30 mmol/L (22-29); Chloride 97 mmol/L (98-107); Glucose 146 mg/dL (70-105); Potassium 4.3 mmol/L (3.5-5.1); Sodium 140 mmol/L (136-145)
[2025-07-31 11:19] LABS: Bacteria/HPF None Seen HPF (None Seen); Glucose, Urine (Dipstick) Greater than 1000 mg/dL (Negative); Leukocyte Negative Leu/uL (Negative); Protein, Urine (Dipstick) Negative (Neg-Trace); RBC/HPF None Seen HPF (0-3); Specific Gravity, Urine 1.010 (1.002-1.036); WBC/HPF 0-3 HPF (0-3)
[2025-07-31 11:33] LABS: Sodium, Urine 80.0 mmol/L (Not Available); Urea Nitrogen, Random Urine 351.0 mg/dl
[2025-07-31] MEDS: Acetaminophen 500 MG TAB PO PRN (23:19)
[2025-07-31] MEDS: Melatonin 3 MG TAB PO PRN (23:19)
[2025-08-01 08:03] LABS: #Basophils 0.04 10x3/uL (0.0-0.2); #Eosinophils 0.28 10x3/uL (0.0-0.7); #Monocytes 1.09 10x3/uL (0.11-0.59); #Neutrophils 5.31 10x3/uL (1.40-6.50); %Basophils 0.4 % (0.0-1.0); %Eosinophils 2.8 % (0.0-10.0); %Lymphocytes 33.4 % (21.0-51.0); %Monocytes 10.7 % (0.0-10.0); %Neutrophils 52.1 % (42.0-75.0); Hematocrit 41.1 % (42.0-52.0); Hemoglobin 12.4 g/dL (14.0-18.0); Mean Corpuscular Hemoglobin 24.5 pg (27.0-31.0); Mean Corpuscular Volume 81.1 fL (78.0-98.0); Platelet Count 241 10x3/uL (130-400); Red Blood Cell (RBC) Count 5.07 mill/uL (4.70-6.10); White Blood Cell (WBC) Count 10.18 10x3/uL (4.8-10.8)
[2025-08-01 08:29] LABS: Albumin 2.9 g/dL (3.1-4.5); Anion Gap 15 mmol/L (10-20); BUN (Urea Nitrogen) 20 mg/dL (8.4-25.7); BUN/Creatinine Ratio 15.75; CK (CPK) 90 U/L (30-200); Calc. Creatinine Clearance 83 mL/min (70-130); Calcium 8.6 mg/dL (7.8-10.44); Carbon Dioxide 25 mmol/L (22-29); Chloride 102 mmol/L (98-107); Glucose 109 mg/dL (70-105); Potassium 4.4 mmol/L (3.5-5.1); Sodium 138 mmol/L (136-145)
[2025-08-02 06:06] LABS: Anion Gap 16 mmol/L (10-20); BUN (Urea Nitrogen) 19 mg/dL (8.4-25.7); Calc. Creatinine Clearance 100 mL/min (70-130); Calcium 9.1 mg/dL (7.8-10.44); Carbon Dioxide 20 mmol/L (22-29); Chloride 103 mmol/L (98-107); Glucose 104 mg/dL (70-105); Potassium 5.6 mmol/L (3.5-5.1); Sodium 133 mmol/L (136-145)
[2025-08-02] MEDS: Sodium Bicarbonate Tab 325 MG TAB PO SCH (10:19)
[2025-08-02] MEDS: Torsemide 20 MG TAB PO SCH (11:01)
[2025-08-03 06:01] LABS: Anion Gap 16 mmol/L (10-20); BUN (Urea Nitrogen) 24 mg/dL (8.4-25.7); Calc. Creatinine Clearance 93 mL/min (70-130); Calcium 8.9 mg/dL (7.8-10.44); Carbon Dioxide 24 mmol/L (22-29); Chloride 102 mmol/L (98-107); Glucose 87 mg/dL (70-105); Magnesium 1.9 mg/dL (1.6-2.6); Potassium 4.3 mmol/L (3.5-5.1); Sodium 138 mmol/L (136-145)
[2025-08-03 08:09] VITALS: TEMP 97.6
[2025-08-03 08:12] VITALS: BP 100/50
[2025-08-03] MEDS ORDERED: Torsemide 20 MG TAB PO SCH (09:00)
== END 2025-08-03 15:47 | disposition home or self-care (01) | DRG 865 ==
LOC: ERS 12:54 → ERHOLD 22:44 → OBS 07-29 08:43 → OBSVTOIN 07-29 16:49
PROVIDERS: ADMIT Internal Medicine; ATTEND Internal Medicine
DX: B34.8 Other viral infections of unspecified site (principal); I21.A1 Myocardial infarction type 2; I50.22 Chronic systolic (congestive) heart failure; Z59.00 Homelessness unspecified; N17.9 Acute kidney failure, unspecified; E87.3 Alkalosis; E87.21 Acute metabolic acidosis; I11.0 Hypertensive heart disease with heart failure; I25.10 Atherosclerotic heart disease of native coronary artery without angina pectoris; E78.5 Hyperlipidemia, unspecified; Z98.890 Other specified postprocedural states; Z88.0 Allergy status to penicillin; Z88.5 Allergy status to narcotic agent; Z88.8 Allergy status to other drugs, medicaments and biological substances; F17.210 Nicotine dependence, cigarettes, uncomplicated; Z79.899 Other long term (current) drug therapy; Z91.018 Allergy to other foods; Z95.1 Presence of aortocoronary bypass graft; E11.9 Type 2 diabetes mellitus without complications; F15.10 Other stimulant abuse, uncomplicated; Z91.199 Patient's noncompliance with other medical treatment and regimen due to unspecified reason; E86.9 Volume depletion, unspecified; E87.5 Hyperkalemia
CPT/HCPCS: 36415; 36416; 71045; 74018; 80048; 80053; 80069; 80306; 80307; 81001; 82040; 82043; 82550; 83735; 83880; 84100; 84300; 84484; 84540; 85025; 87633; 93005; 93010; 96372; 96374; 96375; G0378; J1650; J1815; J1885; J1940; J7030